=== PATIENT | male | born 1955 | race Caucasian/White ===

== ENCOUNTER 2019-06-07 12:34 | Emergency (ER) | payer MEDICAID, SELFPAY ==
--- NOTE | 2019-06-07 12:35 | ECG_ITS ---
Measurements Intervals [place] Rate: 87 P: 71 [place]: 144 QRS: 42 QRSD: 92 T: 57 QT: 358 QTc: 432 SINUS RHYTHM Compared to ECG 10/06/2015 22:29:26 Sinus arrhythmia no longer present Electronically Signed On 06-08-2019 15:41:26 CDT by Keira Alonso M.D. [id number] f
--- NOTE | 2019-06-07 12:35 | XR_ITS ---
WS: [id number] PORTABLE CHEST HISTORY: cp COMPARISON: 10/06/2015 Mild hyperexpansion of the lungs. Linear atelectasis at the RIGHT lung base. Long-term stability 2.1 cm granuloma LEFT upper lobe. No pneumonia. No pleural effusion or pneumothorax. Cardiac size: Normal. Mediastinum/Aorta: Mild atherosclerosis aorta. No osseous abnormality seen. XR/XR chest 1V portable [id number] IMPRESSION: Chronic emphysema. No acute cardiopulmonary disease.
[2019-06-07 12:50] VITALS: BP 212/119; PULSE 89; RESP 20; TEMP 36.8; O2SAT 98; BMI 21.7
--- NOTE | 2019-06-07 13:11 | ED_ITS ---
HPI - Chest Pain General: Chief Complaint: Chest Pain Stated Complaint: CHEST PAIN/L ARM Time Seen by Provider: 06/07/19 12:56 History of Present Illness: HPI narrative: 53-year-old male who comes in complaining of chest pain for the last about 2 to 2-1/2 weeks he has it intermittently. He associated elevated blood pressure as well. At various times he is taken valerian root for its is a does not seem to help he did take a single sublingual nitro one time recently that seemed to resolve it. He states various things seem to trigger it one time he states he opened the door with his left arm and caused a twinge of chest pain on the left side other times is just occurred at rest he denies any other times or radiation he has had some dyspnea associated with it but no diaphoresis no nausea or vomiting. He usually describes the chest pain as being in twinges the longest it ever lasted is 15 to 20 minutes and is resolved spontaneously. He is not previously had any kind of stress testing. He is not had any fever cough denies abdominal pain urinary tract symptoms he has not had any leg edema. MD complaint: chest pain Onset (ago): week(s) (2-2-1/2) Timing of current episode: episodic Prior episodes: No Onset: during rest Pain location: left chest Pain radiation: none Severity: moderate Quality: tightness and aching Relieving factors: nitroglycerin and rest Exacerbating factors: other (Times exertion will worsen other times it began spontaneously while at rest) Associated symptoms: Reports dyspnea; Deny diaphoresis, fever(s), leg edema, nausea, palpitations, syncope or vomiting Review of Systems Const: Denies: fever or diaphoresis ENMT: Denies: throat pain, ear pain, nasal discharge or nasal congestion Card: Reports: chest pain; Denies: palpitations, irregular heart rhythm, edema, syncope or shortness of breath on exertion Resp: Reports: shortness of breath GI: Denies: nausea or vomiting : Denies: flank pain, painful urination, urinary frequency or urinary urgency Skin/Breast: Denies: rash or itching [facility] ED PFSH: Medical History (Updated 06/07/19 @ 16:25 by Herminio Zamora DO) Finger amputation, traumatic Surgical History (Updated 06/07/19 @ 13:15 by Herminio Zamora DO) H/O lymph node excision Social History Smoking and tobacco status: former smoker Physical Exam Const: COMMON NORMALS: no apparent distress GENERAL APPEARANCE: cooperative and comfortable ORIENTATION/CONSCIOUSNESS: Yes awake, Yes oriented to person, Yes oriented to place and Yes oriented to time HENMT: COMMON NORMALS: normocephalic, head/scalp atraumatic, hearing grossly normal bilaterally, external ears normal, EAC's normal, TM's normal bilaterally, nasal mucous membranes and turbinates normal, moist oral mucous membranes and oropharynx normal HEAD & SCALP: normocephalic and atraumatic NOSE: nasal mucous membranes and turbinates normal EXTERNAL EAR: Yes external ears normal EXTERNAL AUDITORY CANAL: EAC's normal TYMPANIC MEMBRANE: TM's normal bilaterally Eye: COMMON NORMALS: PERRL, EOMs intact bilaterally, conjunctivae normal and no scleral icterus CONJUNCTIVA: Yes conjunctivae normal PUPIL: Yes PERRL Neck/C-Spine: COMMON NORMALS: full ROM, no lymphadenopathy, supple and no JVD Lymph: LYMPHATIC: no lymphadenopathy noted and no lymphedema noted Resp: COMMON NORMALS: normal respiratory effort, no retractions, no use of accessory muscles and clear to auscultation bilaterally AUSCULTATION: clear to auscultation bilaterally Cardio: COMMON NORMALS: no JVD, regular rate, regular rhythm and no murmurs RATE: regular rate RHYTHM: regular rhythm GI: COMMON NORMALS: soft to palpation and no hepatosplenomegaly AUSCULTATION: Yes normoactive bowel sounds PALPATION: Yes soft, No tender, No guarding and Yes no hepatosplenomegaly Extremity: COMMON NORMALS: normal to inspection, normal capillary refill, no clubbing, cyanosis or edema, no calf tenderness and no pedal edema Neuro: SENSORIUM/ORIENTATION: Yes oriented to person, Yes oriented to place and Yes oriented to time Skin: COMMON NORMALS: no rashes or lesions noted GENERAL SKIN EXAM: no rashes or lesions noted Course Vital Signs: Vital signs: Vital Signs Temperature 98.2 F 06/07/19 12:50 Pulse Rate 95 06/07/19 17:21 Respiratory Rate 16 06/07/19 17:21 Blood Pressure 197/119 06/07/19 17:21 Pulse Oximetry 97 06/07/19 17:21 MDM - Chest Pain MDM Narrative: Medical decision making narrative: Discharge home set up for outpatient stress testing patient started on Toprol and given sublingual nitro also advised take aspirin daily if he has any recurrent symptoms return Lab Data: Labs: Lab Results 06/07/19 06/07/19 06/07/19 Range/Units 13:16 13:16 13:16 WBC 6.9 (4.0-10.0) 10^3/ uL RBC 5.35 H (4.1-5.3) 10^6/u L Hgb 16.6 (11.7-16.6) g/dL Hct 51.4 (42.0-52.0) % MCV 96.1 H (80-94) fL MCH 31.0 (28.0-34.0) pg MCHC 32.3 (30.0-36.0) g/dL RDW 13.0 (12.1-15.1) % Plt Count 338 (130-400) 10^3/c mm MPV 9.6 (7.4-10.4) fL Neut % (Auto) 61.3 % Lymph % (Auto) 22.7 % [place] % (Auto) 9.7 % Eos % (Auto) 4.6 % Baso % (Auto) 1.3 % Neut # (Auto) 4.2 (1.8-7.7) 10^3/u L Lymph # (Auto) 1.6 (0.8-4.8) 10^3/u L [place] # (Auto) 0.7 (0.2-0.9) 10^3/u L Eos # (Auto) 0.3 (0.0-0.8) 10^3/u L Baso # (Auto) 0.1 (0.0-0.1) 10^3/u L Nucleated RBC % (a uto) 0 % Nucleated RBCs # 0.0 /100WBC Sodium 141 (136-145) mmol/L Potassium 4.2 (3.5-5.1) mmol/L Chloride 101 (98-107) mmol/L Carbon Dioxide 29 (22-29) mmol/L Anion Gap 15.2 (5-19) BUN 8 (8-23) mg/dL Creatinine 1.1 (0.7-1.2) mg/dL GFR Calculation 67.2 L (90-130) mL/min Glucose 109 (65-115) mg/dL Calculated Osmolal ity 288 (285-295) mOsm/k g Calcium 9.6 (8.5-10.5) mg/dL Total Bilirubin 0.2 (0.15-1.2) mg/dL AST 17 (0-40) U/L ALT 15 (0-41) U/L Alkaline Phosphata se 88 (40-130) IU/L Troponin T Baselin e 20 H (0-15) ng/mL Troponin T 120 Min [place] (0-15) ng/mL Delta Troponin T (0-10) ABS# Total Protein 7.0 (6.6-8.7) g/dL Albumin 4.2 (3.5-5.2) g/dL Globulin 2.8 (1.3-4.6) g/dL 06/07/19 Range/Units 15:15 WBC (4.0-10.0) 10^3/ uL RBC (4.1-5.3) 10^6/u L Hgb (11.7-16.6) g/dL Hct (42.0-52.0) % MCV (80-94) fL MCH (28.0-34.0) pg MCHC (30.0-36.0) g/dL RDW (12.1-15.1) % Plt Count (130-400) 10^3/c mm MPV (7.4-10.4) fL Neut % (Auto) % Lymph % (Auto) % Sterling % (Auto) % Eos % (Auto) % Baso % (Auto) % Neut # (Auto) (1.8-7.7) 10^3/u L Lymph # (Auto) (0.8-4.8) 10^3/u L Sterling # (Auto) (0.2-0.9) 10^3/u L Eos # (Auto) (0.0-0.8) 10^3/u L Baso # (Auto) (0.0-0.1) 10^3/u L Nucleated RBC % (a uto) % Nucleated RBCs # /100WBC Sodium (136-145) mmol/L Potassium (3.5-5.1) mmol/L Chloride (98-107) mmol/L Carbon Dioxide (22-29) mmol/L Anion Gap (5-19) BUN (8-23) mg/dL Creatinine (0.7-1.2) mg/dL GFR Calculation (90-130) mL/min Glucose (65-115) mg/dL Calculated Osmolal ity (285-295) mOsm/k g Calcium (8.5-10.5) mg/dL Total Bilirubin (0.15-1.2) mg/dL AST (0-40) U/L ALT (0-41) U/L Alkaline Phosphata se (40-130) IU/L Troponin T Baselin e (0-15) ng/mL Troponin T 120 Min [place] 19.35 H (0-15) ng/mL Delta Troponin T -0.65 L (0-10) ABS# Total Protein (6.6-8.7) g/dL Albumin (3.5-5.2) g/dL Globulin (1.3-4.6) g/dL Discharge Plan Discharge Patient Disposition: Home, Self-Care Clinical Impression: Chest pain Condition: Stable Prescriptions: New nitroglycerin 0.4 mg tablet, sublingual 0.4 mg SUBLINGUAL Q5M PRN (Reason: chest pain) Qty: 20 RF: 0 Toprol XL 25 mg tablet extended release 24 hr 25 mg PO DAILY Qty: 30 RF: 0 No Action Multiple Vitamins Tablet 1 tab PO DAILY RF: 0 Aspir-81 81 mg Tablet,Delayed Release (Dr/Ec) 81 mg PO DAILY RF: 0 Vitamin D3 1 tab PO DAILY RF: 0 Abuta See Rx Instructions .ROUTE .COMPLEX RF: 0 Vitamin C 1,000 mg Tablet 1,000 mg PO PRN RF: 0 Embauba See Rx Instructions .ROUTE .COMPLEX RF: 0 Graviola See Rx Instructions .ROUTE .COMPLEX RF: 0 Mesoglycan 1 tab PO DAILY RF: 0 Discharge Orders: Discharge Order (Routine); Ordered 06/07/19 Ordered By: Herminio Zamora Referrals: Hill Cleveland, [employer] WORK[employer] [Family Provider] - Discharge Diet: Usual diet Discharge Activity: Limit activity as instructed Activity Restrictions/Additional Instructions: Case management will call to make an appointment for a sestamibi stress test Discharge Date/Time: 06/07/19 16:47 Coding Level of Care Code ED Hydroponics Worker for g Fwd Exam Comprehensive
[2019-06-07 13:24] LABS: Basophils # 0.1 10^3/uL (0.0-0.1); Basophils % 1.3 %; Eosinophils # 0.3 10^3/uL (0.0-0.8); Eosinophils % 4.6 %; Hematocrit 51.4 % (42.0-52.0); Hemoglobin 16.6 g/dL (11.7-16.6); Lymphocytes # 1.6 10^3/uL (0.8-4.8); Lymphocytes % 22.7 %; Mean Corpuscular HGB Conc 32.3 g/dL (30.0-36.0); Mean Corpuscular Volume 96.1 fL (80-94); Mean Platelet Volume 9.6 fL (7.4-10.4); Monocytes # 0.7 10^3/uL (0.2-0.9); Monocytes % 9.7 %; Neutrophils # 4.2 10^3/uL (1.8-7.7); Neutrophils % 61.3 %; Nucleated Red Blood Cells % 0 %; Platelet Count 338 10^3/cmm (130-400); Red Blood Count 5.35 10^6/uL (4.1-5.3); White Blood Count 6.9 10^3/uL (4.0-10.0)
[2019-06-07 13:27] VITALS: BP 196/103; PULSE 85; RESP 16; O2SAT 97
[2019-06-07 13:48] LABS: Alanine Aminotransferase 15 U/L (0-41); Albumin Level 4.2 g/dL (3.5-5.2); Alkaline Phosphatase 88 IU/L (40-130); Anion Gap 15.2 (5-19); Aspartate Amino Transferase 17 U/L (0-40); Blood Urea Nitrogen 8 mg/dL (8-23); Calcium 9.6 mg/dL (8.5-10.5); Carbon Dioxide 29 mmol/L (22-29); Chloride 101 mmol/L (98-107); Globulin 2.8 g/dL (1.3-4.6); Glomerular Filtration Rate 67.2 mL/min (90-130); Glucose 109 mg/dL (65-115); Osmolality Calculated 288 mOsm/kg (285-295); Potassium 4.2 mmol/L (3.5-5.1); Sodium 141 mmol/L (136-145); Total Bilirubin 0.2 mg/dL (0.15-1.2)
[2019-06-07 13:49] LABS: Troponin(5th) Baseline 20 ng/mL (0-15)
[2019-06-07 13:51] VITALS: BP 197/114; PULSE 88; RESP 14; O2SAT 98
[2019-06-07 14:48] VITALS: BP 175/118; PULSE 89; RESP 14; O2SAT 98
[2019-06-07 15:33] LABS: Troponin 5 2HR 19.35 ng/mL (0-15)
[2019-06-07 16:06] LABS: Troponin 5 2HR Delta -0.65 ABS# (0-10)
[2019-06-07 17:21] VITALS: BP 197/119; PULSE 95; RESP 16; O2SAT 97
--- NOTE | 2019-06-07 18:35 | ECG_ITS ---
Measurements Intervals [place] Rate: 89 P: 70 NC: 140 QRS: 45 QRSD: 92 T: 49 QT: 368 QTc: 449 SINUS RHYTHM WITH MARKED SINUS ARRHYTHMIA MINIMAL ST DEPRESSION [0.025+ mV ST DEPRESSION] Compared to ECG 10/06/2015 22:29:26 ST (T wave) deviation now present Electronically Signed On 06-08-2019 16:01:48 CDT by Keira Alonso M.D. [id number]
--- NOTE | 2019-06-12 08:48 | DCPLANNER ---
software quality manager had message to schedule an outpatient stress test for patient. software quality manager faxed order for stress test to centralized scheduling. software quality manager will call for appointment information.
--- NOTE | 2019-06-19 15:01 | DCPLANNER ---
Patient has a followup appointment scheduled for Saturday, July 06, 2019 at 11:00 for a out patient stress test.
--- NOTE | 2019-07-13 14:29 | DCPLANNER ---
Patients stress test that was scheduled for 07.06.19 was cancelled.
== END 2019-06-07 16:47 | disposition home or self-care (01) ==
PROVIDERS: Emergency Medicine; Emergency Provider Family Medicine; Family Provider Nurse Practitioner
DX: R07.9 Chest pain, unspecified (principal); Z79.82 Long term (current) use of aspirin; Z87.891 Personal history of nicotine dependence
CPT/HCPCS: 12345; 36415; 71045; 80053; 84484; 85025; 93005; 99283

== ENCOUNTER 2020-02-08 13:57 | Emergency (ER) | payer MEDICARE, MEDICAID, SELFPAY ==
[2020-02-08] VITALS (7 sets, daily range): BP systolic 121–141; BP diastolic 76–83; PULSE 90–106; RESP 14–20; TEMP 37.8; O2SAT 91–95; BMI 21.7
--- NOTE | 2020-02-08 14:17 | XR_ITS ---
WS: [id number] Exam: XR acute abdomen series [id number] Date/Time of Exam: 02/08/2020 2:24 PM Reason For Exam: vomiting Chest radiograph compared to prior study 06/07/2019. There is infiltrate in the right upper lobe consistent with pneumonia. The left lung is clear. Normal cardiomediastinal structures and bony elements. 2 cm calcified granuloma in the upper left lobe. No sign of bowel obstruction or free air. Visualized organ margins are intact. Bony structures appear no rmal. XR/XR acute abdomen series [id number] IMPRESSION: 1. Right upper lobe pneumonia. 2. No acute abdominal finding.
[2020-02-08] MEDS: sodium chloride 0.9% 500 ML IV (15:06)
[2020-02-08] MEDS: ondansetron 2 mg/ML SDV 2 mL 4 MG IVP (15:06)
[2020-02-08 15:24] LABS: Basophils % 0.2 %; Hematocrit 50.6 % (42.0-52.0); Lymphocytes # 0.9 10^3/uL (0.8-4.8); Lymphocytes % 13.7 %; Mean Corpuscular HGB Conc 33.6 g/dL (30.0-36.0); Mean Corpuscular Hemoglobin 31.2 pg (28.0-34.0); Mean Corpuscular Volume 92.8 fL (80-94); Mean Platelet Volume 10.9 fL (7.4-10.4); Monocytes # 0.8 10^3/uL (0.2-0.9); Monocytes % 12.7 %; Neutrophils # 4.81 10^3/uL (1.8-7.7); Neutrophils % 72.9 %; Nucleated Red Blood Cells % 0 %; Platelet Count 189 10^3/cmm (130-400); Red Blood Count 5.45 10^6/uL (4.1-5.3); Red Cell Distribution Width 13.3 % (12.1-15.1); White Blood Count 6.6 10^3/uL (4.0-10.0)
--- NOTE | 2020-02-08 15:36 | ED_ITS ---
HPI - Nausea/Vomiting/Diarrhea General: Chief complaint: Nausea/Vomiting/Diarrhea Stated complaint: N/V/ WEAKNESS/ SOB W/EXERTION Time Seen by Provider: 02/08/20 13:58 Source: patient, RN notes reviewed and old records reviewed Mode of arrival: ambulatory History of Present Illness: HPI Narrative: 64-year-old male presents to the emergency room chief complaint of having reduced appetite oral intake nausea and vomiting and fever has been ongoing since patient reports no history of any stomach ulcers or GI issues she reports reduced appetite and oral intake reports no other associated symptoms reports no bloody emesis or stools. MD elicited complaint: nausea, vomiting and abdominal pain (Epigastric) Associated nausea: No Location of pain: Epigastric Pain consistency: intermittent Severity: moderate Quality: cramping Associated symtoms: Denies anxiety, change in vision, chest pain, fatigue, headache(s), malaise, nausea or palpitations Review of Systems General: Reports: 10 or more systems reviewed and unremarkable except in HPI and below Const: Denies: fever(s), chills, fatigue or malaise Eyes: Denies: change in vision or blurry vision Card: Denies: chest pain or palpitations Resp: Denies: dyspnea or productive cough GI: Denies: abdominal pain, nausea or vomiting : Denies: flank pain Musc: Denies: extremity pain or extremity swelling Skin/Breast: Denies: rash or pruritus Neuro: Denies: headache(s) Psych: Denies: anxiety or depression Marciano/Lymph: Denies: easy bleeding All/Imm: Denies: urticaria, throat swelling or facial swelling PFS ED PFSH: Medical History (Updated 02/08/20 @ 18:13 by Babar Ugalde) Finger amputation, traumatic Surgical History (Updated 06/07/19 @ 13:15 by Herminio Zamora DO) H/O lymph node excision Social History Smoking and tobacco status: former smoker Physical Exam Const: COMMON NORMALS: patient oriented x3 and healthy appearing HENMT: COMMON NORMALS: normocephalic and atraumatic HEAD & SCALP: normocephalic and atraumatic Eye: COMMON NORMALS: Equal, round and reactive pupils present and EOMs intact bilaterally PUPIL: Yes Equal, round and reactive pupils present Neck/C-Spine: COMMON NORMALS: full ROM, supple and no JVD Lymph: LYMPHATIC: no lymphadenopathy noted Chest: COMMONS NORMALS: normal inspection of the chest and normal palpation of entire chest wall Resp: COMMON NORMALS: No retractions; negative for normal respiratory effort (Diminished breath sounds appreciated bilaterally with mild scattered expira) EFFORT & INSPECTION: Yes able to speak in complete sentences and Yes symmetric chest movement AUSCULTATION: wheezes Cardio: COMMON NORMALS: no JVD; negative for regular rate (Tachycardic low 100s noted) GI: COMMON NORMALS: Normal to inspection, nondistended, normoactive bowel sounds present, Soft to palpation and non-tender INSPECTION: Yes normal to inspection PALPATION: Yes Soft to palpation : COMMON NORMALS: Yes no CVA tenderness BLADDER/KIDNEY EXAM: Yes no CVA tenderness Back/Pelvis: COMMON NORMALS: no CVA tenderness Extremity: COMMON NORMALS: normal to inspection and full ROM Neuro: COMMON NORMALS: patient oriented x3, CN's II-XII intact bilaterally, moves all extremities and no focal motor deficits Psych: COMMON NORMALS: mental status grossly normal, Normal thought process present, cooperative and normal affect THOUGHT PROCESS: Normal thought process present Skin: COMMON NORMALS: no rashes or lesions noted GENERAL SKIN EXAM: no rashes or lesions noted Course Vital Signs: Vital signs: Vital Signs Temperature 100.1 F H 02/08/20 14:04 Pulse Rate 99 02/08/20 16:58 Respiratory Rate 16 02/08/20 16:58 Blood Pressure 137/77 02/08/20 16:58 Pulse Oximetry 94 02/08/20 16:58 MDM - Nausea/Vomiting/Diarrhea MDM Narrative: Medical decision making narrative: Due to the patient's significant edition lab work and imaging was obtained the patient patient was found to have a right-sided pneumonia will be obtaining a rapid Covid swab results as well as provide him with steroids and neb treatments oxygen saturations remained in the low 90s. He does not appear to be septic at this time we will continue to follow. Lab work and imaging revealed mild light letter enema abnormalities he did have a right-sided pneumonia appreciated he was provided some antibiotics while in the ER department and subsequently discharged home on medications for his symptoms. Patient vies follow-up primary care in 3 to 5 days for further assessment management and return in the interim if any of his symptoms persist or worsen. Prior to subsequent discharge patient was able to tolerate p.o. intake of water which he had no difficulty holding down. Lab Data: Labs: Lab Results 02/08/20 02/08/20 02/08/20 Range/Units 15:05 15:05 16:55 WBC 6.6 (4.0-10.0) 10^3/ uL RBC 5.45 H (4.1-5.3) 10^6/u L Hgb 17.0 H (11.7-16.6) g/dL Hct 50.6 (42.0-52.0) % MCV 92.8 (80-94) fL MCH 31.2 (28.0-34.0) pg MCHC 33.6 (30.0-36.0) g/dL RDW 13.3 (12.1-15.1) % Plt Count 189 (130-400) 10^3/c mm MPV 10.9 H (7.4-10.4) fL Neut % (Auto) 72.9 % Lymph % (Auto) 13.7 % [place] % (Auto) 12.7 % Eos % (Auto) 0.0 % Baso % (Auto) 0.2 % Neut # (Auto) 4.81 (1.8-7.7) 10^3/u L Lymph # (Auto) 0.9 (0.8-4.8) 10^3/u L [place] # (Auto) 0.8 (0.2-0.9) 10^3/u L Eos # (Auto) 0.0 (0.0-0.8) 10^3/u L Baso # (Auto) 0.0 (0.0-0.1) 10^3/u L Nucleated RBC % (a uto) 0 % Nucleated RBCs # 0.0 /100WBC Sodium 132 L (136-145) mmol/L Potassium 4.1 (3.5-5.1) mmol/L Chloride 93 L (98-107) mmol/L Carbon Dioxide 30 H (22-29) mmol/L Anion Gap 13.1 (5-19) BUN 15 (8-23) mg/dL Creatinine 1.0 (0.7-1.2) mg/dL GFR Calculation 74.8 L (90-130) mL/min Glucose 115 (65-115) mg/dL Calculated Osmolal ity 276 L (285-295) mOsm/k g Calcium 8.8 (8.5-10.5) mg/dL Total Bilirubin 0.4 (0.15-1.2) mg/dL AST 29 (0-40) U/L ALT 12 (0-41) U/L Alkaline Phosphata se 55 (40-130) IU/L Total Protein 6.7 (6.6-8.7) g/dL Albumin 3.3 L (3.5-5.2) g/dL Globulin 3.4 (1.3-4.6) g/dL Lipase 63 H (13-60) U/L SARS-CoV-2 Ag (Rap id) Negative (Negative) Discharge Plan Discharge Patient Disposition: Home Clinical Impression: Nausea vomiting and diarrhea, Pneumonia, Gastroenteritis, Dehydration Condition: Stable Prescriptions: New azithromycin 500 mg tablet 500 mg PO DAILY 7 Days Qty: 7 RF: 0 Zofran 4 mg tablet 4 mg PO Q4H PRN (Reason: nausea and vomiting) 4 Days Qty: 20 RF: 0 Ventolin HFA 90 mcg/actuation HFA aerosol inhaler 1 inh inhalation Q6H PRN (Reason: shortness of breath or wheezing) Qty: 6.7 RF: 0 Protonix 40 mg tablet,delayed release (DR/EC) 40 mg PO BID 10 Days Qty: 20 RF: 0 No Action Multiple Vitamins Tablet 1 tab PO DAILY RF: 0 Aspir-81 81 mg Tablet,Delayed Release (Dr/Ec) 81 mg PO DAILY RF: 0 Vitamin D3 1 tab PO DAILY RF: 0 Abuta See Rx Instructions .ROUTE .COMPLEX RF: 0 Vitamin C 1,000 mg Tablet 1,000 mg PO PRN RF: 0 Embauba See Rx Instructions .ROUTE .COMPLEX RF: 0 Graviola See Rx Instructions .ROUTE .COMPLEX RF: 0 Mesoglycan 1 tab PO DAILY RF: 0 nitroglycerin 0.4 mg tablet, sublingual 0.4 mg SUBLINGUAL Q5M PRN (Reason: chest pain) Qty: 20 RF: 0 Toprol XL 25 mg tablet extended release 24 hr 25 mg PO DAILY Qty: 30 RF: 0 Discharge Orders: Discharge ED (Routine); Ordered 02/08/20 Ordered By: Babar Ugalde Referrals: Hill Cleveland, [employer] LIBRARIAN-C [Primary Care Provider] - 4-7 days Discharge Diet: Advance as tolerated Patient Instructions: Acute Nausea and Vomiting (ED), Pneumonia (ED) Activity Restrictions/Additional Instructions: Please follow-up with your primary care doctor 4 to 7 days take medications as prescribed and return to the ER if any of your symptoms persist or worse. Adhere to a clear liquid diet and advance as tolerated due to your nausea and vomiting. Coding Level of Care Code ED Assigner for Tommie Fwd Exam Comprehensive
[2020-02-08 16:16] LABS: Alanine Aminotransferase 12 U/L (0-41); Albumin Level 3.3 g/dL (3.5-5.2); Alkaline Phosphatase 55 IU/L (40-130); Anion Gap 13.1 (5-19); Aspartate Amino Transferase 29 U/L (0-40); Blood Urea Nitrogen 15 mg/dL (8-23); Calcium 8.8 mg/dL (8.5-10.5); Carbon Dioxide 30 mmol/L (22-29); Chloride 93 mmol/L (98-107); Globulin 3.4 g/dL (1.3-4.6); Glomerular Filtration Rate 74.8 mL/min (90-130); Glucose 115 mg/dL (65-115); Lipase 63 U/L (13-60); Osmolality Calculated 276 mOsm/kg (285-295); Potassium 4.1 mmol/L (3.5-5.1); Sodium 132 mmol/L (136-145); Total Bilirubin 0.4 mg/dL (0.15-1.2); Total Protein 6.7 g/dL (6.6-8.7)
[2020-02-08] MEDS: ipratropium-albuterol 3 mL Neb INHALATION (16:20)
[2020-02-08] MEDS: cefTRIAXone 1,000 MG in sodium chloride 0.9% (plus) 50 ML 100 MG IV (16:50)
[2020-02-08] MEDS: ibuprofen 600 mg Tablet PO (17:10)
[2020-02-08 17:54] LABS: SARS Covid-2 Antigen Negative (Negative)
== END 2020-02-08 18:35 | disposition home or self-care (01) ==
PROVIDERS: Emergency Provider Emergency Medicine; PCP Nurse Practitioner
DX: K52.9 Noninfective gastroenteritis and colitis, unspecified (principal); E86.0 Dehydration; J18.9 Pneumonia, unspecified organism; Z79.82 Long term (current) use of aspirin; Z87.891 Personal history of nicotine dependence
CPT/HCPCS: 12345; 74022; 80053; 83690; 85025; 87426; 94640; 96365; 96375; 99282; 99284; J0696; J2405; J2930; J7040

== ENCOUNTER 2020-02-13 18:50 | Inpatient (IN) | payer MEDICARE, MEDICAID, SELFPAY ==
[2020-02-13] VITALS (14 sets, daily range): BP systolic 114–130; BP diastolic 68–89; PULSE 87–100; RESP 16–20; TEMP 37.7; O2SAT 90–95; BMI 19.6
--- NOTE | 2020-02-13 19:00 | ECG_ITS ---
[facility] Test Date: 2020-02-13 Pat Name: Rudi Sanchez Department: Room: Gender: Male [employer]: : 1955 Requested By: Margret Martinez Order Number: [id number] Marcel MD: Shiva Rodriguez M.D. Measurements Intervals [place] Rate: 100 P: 68 AK: 119 QRS: 61 QRSD: 86 T: 66 QT: 344 QTc: 445 Interpretive Statements SINUS TACHYCARDIA WITH SHORT [place] INTERVAL ABNORMAL RHYTHM ECG Compared to ECG 06/07/2019 15:54:19 Short AK interval now present Sinus rhythm no longer present Sinus arrhythmia no longer present ST (T wave) deviation no longer present Electronically Signed On 02-13-2020 20:14:48 PRICE LISTER by Shiva Rodriguez M.D. [id number]
--- NOTE | 2020-02-13 19:02 | W.ED.SOB ---
HPI - SOB/Dyspnea General: Chief Complaint: Shortness of Breath/Dyspnea Stated Complaint: resp dis poss covid Time Seen by Provider: 02/13/20 18:50 Source: patient and EMS Mode of arrival: EMS Limitations: no limitations History of Present Illness: HPI Narrative: 64-year-old male states he was diagnosed with pneumonia 2 days ago. He states he did have a Covid that was negative. States he has had contacts with people with Covid though. He states that today got much more short of breath and had increased wheezing. EMS states he is 72% on room air and had to place him on 5 L of oxygen. He has had no chest pain. He has had fevers. Denies any vomiting or diarrhea. Associated symptoms: Reports fever(s); Deny abdominal pain, chest pain, nausea or vomiting Review of Systems Const: Reports: fever(s) Eyes: Denies: blurry vision or eye discomfort ENMT: Denies: throat pain or dental pain Card: Denies: chest pain Resp: Reports: dyspnea, non-productive cough and wheezing GI: Denies: abdominal pain, nausea, vomiting or diarrhea : Denies: dysuria Musc: Denies: neck pain or back pain Skin/Breast: Denies: rash Neuro: Denies: headache(s) Psych: Denies: depression Marciano/Lymph: Denies: easy bruising All/Imm: Denies: urticaria PFSH ED PFSH: Medical History (Updated 02/13/20 @ 22:50 by Margret Martinez MD) Finger amputation, traumatic Surgical History (Updated 06/07/19 @ 13:15 by Herminio Zamora DO) H/O lymph node excision Social History Smoking and tobacco status: former smoker Physical Exam Const: COMMON NORMALS: patient oriented x3 and healthy appearing GENERAL APPEARANCE: in distress HENMT: COMMON NORMALS: normocephalic and atraumatic HEAD & SCALP: normocephalic and atraumatic Eye: COMMON NORMALS: Equal, round and reactive pupils present and EOMs intact bilaterally PUPIL: Yes Equal, round and reactive pupils present Neck/C-Spine: COMMON NORMALS: full ROM and supple Chest: COMMONS NORMALS: normal inspection of the chest and normal palpation of entire chest wall Resp: COMMON NORMALS: No retractions EFFORT & INSPECTION: Yes tachypneic and Yes respiratory distress AUSCULTATION: wheezes Cardio: COMMON NORMALS: regular rate, regular rhythm and No murmurs present (Cardio) RATE: regular rate RHYTHM: regular rhythm GI: COMMON NORMALS: Normal to inspection, nondistended, normoactive bowel sounds present, Soft to palpation, non-tender and no masses PALPATION: Yes Soft to palpation Extremity: COMMON NORMALS: normal to inspection and full ROM Neuro: COMMON NORMALS: patient oriented x3, moves all extremities and no focal motor deficits Psych: COMMON NORMALS: mental status grossly normal, Normal thought process present and cooperative THOUGHT PROCESS: Normal thought process present Skin: COMMON NORMALS: no rashes or lesions noted and no wounds GENERAL SKIN EXAM: no rashes or lesions noted Course Vital Signs: Vital signs: Vital Signs Temperature 99.8 F H 02/13/20 18:59 Pulse Rate 98 02/13/20 22:38 Respiratory Rate 16 02/13/20 23:15 Blood Pressure 118/74 02/13/20 23:15 Pulse Oximetry 95 02/13/20 23:15 MDM - SOB/Dyspnea MDM Narrative: Medical decision making narrative: Rudi presents here with bilateral pneumonia causing hypoxia. Patient is doing well on BiPAP patient's rapid Covid here is negative but will do a send out. Patient given IV antibiotics. I spoke to the hospitalist and will admit to the ICU. Patient CT showed no signs of pulmonary embolism. Lab Data: Labs: Lab Results 02/13/20 02/13/20 02/13/20 Range/Units 19:00 19:54 19:54 WBC 8.5 (4.0-10.0) 10^3/ uL RBC 4.11 (4.1-5.3) 10^6/u L Hgb 12.8 (11.7-16.6) g/dL Hct 38.4 L (42.0-52.0) % MCV 93.4 (80-94) fL MCH 31.1 (28.0-34.0) pg MCHC 33.3 (30.0-36.0) g/dL RDW 13.2 (12.1-15.1) % Plt Count 150 (130-400) 10^3/c mm MPV 11.1 H (7.4-10.4) fL Neut % (Auto) 83.4 % Lymph % (Auto) 9.3 % Williamson % (Auto) 6.2 % Eos % (Auto) 0.1 % Baso % (Auto) 0.2 % Neut # (Auto) 7.09 (1.8-7.7) 10^3/u L Lymph # (Auto) 0.8 (0.8-4.8) 10^3/u L Williamson # (Auto) 0.5 (0.2-0.9) 10^3/u L Eos # (Auto) 0.0 (0.0-0.8) 10^3/u L Baso # (Auto) 0.0 (0.0-0.1) 10^3/u L Nucleated RBC % (a uto) 0 % Nucleated RBCs # 0.0 /100WBC PT 14.70 (12.1-14.9) SECO NDS INR 1.11 (0.8-1.2) Specimen Type Arterial Sample Site Brachial, left ABG pH 7.52 H (7.35-7.45) ABG pCO2 34.8 L (35-45) mmHg ABG pO2 52.7 L (80.0-100.0) mmH g ABG HCO3 28.3 H (22-26) mmol/L ABG Base Excess 5.5 H (-2.0-2.0) mmol/ L Arun Test N/a Hematocrit 48.2 (42-52) % Hgb O2 Saturation 88.2 L (95-100) % Carboxyhemoglobin 1.0 (0.4-20.1) %THgb Methemoglobin 1.0 (0.4-1.5) % Total Hemoglobin 15.7 (14-18) g/dL O2 Delivery Device Bipap FiO2 70.0 % Mathematical Sciences Professor ID Harkr Sodium (136-145) mmol/L Potassium (3.5-5.1) mmol/L Chloride (98-107) mmol/L Carbon Dioxide (22-29) mmol/L Anion Gap (5-19) BUN (8-23) mg/dL Creatinine (0.7-1.2) mg/dL GFR Calculation (90-130) mL/min Glucose (65-115) mg/dL Calculated Osmolal ity (285-295) mOsm/k g Lactic Acid (0.5-2.2) mmol/L Calcium (8.5-10.5) mg/dL Total Bilirubin (0.15-1.2) mg/dL AST (0-40) U/L ALT (0-41) U/L Alkaline Phosphata se (40-130) IU/L NT-Pro-B Natriuret Pep (0-125) pg/mL Total Protein (6.6-8.7) g/dL Albumin (3.5-5.2) g/dL Globulin (1.3-4.6) g/dL SARS-CoV-2 Ag (Rap id) (Negative) 02/13/20 02/13/20 02/13/20 Range/Units 19:54 20:13 21:31 WBC (4.0-10.0) 10^3/ uL RBC (4.1-5.3) 10^6/u L Hgb (11.7-16.6) g/dL Hct (42.0-52.0) % MCV (80-94) fL MCH (28.0-34.0) pg MCHC (30.0-36.0) g/dL RDW (12.1-15.1) % Plt Count (130-400) 10^3/c mm MPV (7.4-10.4) fL Neut % (Auto) % Lymph % (Auto) % Williamson % (Auto) % Eos % (Auto) % Baso % (Auto) % Neut # (Auto) (1.8-7.7) 10^3/u L Lymph # (Auto) (0.8-4.8) 10^3/u L Williamson # (Auto) (0.2-0.9) 10^3/u L Eos # (Auto) (0.0-0.8) 10^3/u L Baso # (Auto) (0.0-0.1) 10^3/u L Nucleated RBC % (a uto) % Nucleated RBCs # /100WBC PT (12.1-14.9) SECO NDS INR (0.8-1.2) Specimen Type Sample Site ABG pH (7.35-7.45) ABG pCO2 (35-45) mmHg ABG pO2 (80.0-100.0) mmH g ABG HCO3 (22-26) mmol/L ABG Base Excess (-2.0-2.0) mmol/ L Arun Test Hematocrit (42-52) % Hgb O2 Saturation (95-100) % Carboxyhemoglobin (0.4-20.1) %THgb Methemoglobin (0.4-1.5) % Total Hemoglobin (14-18) g/dL O2 Delivery Device FiO2 % Mathematical Sciences Professor ID Sodium 134 L (136-145) mmol/L Potassium 4.0 (3.5-5.1) mmol/L Chloride 96 L (98-107) mmol/L Carbon Dioxide 28 (22-29) mmol/L Anion Gap 14.0 (5-19) BUN 15 (8-23) mg/dL Creatinine 1.1 (0.7-1.2) mg/dL GFR Calculation 67.0 L (90-130) mL/min Glucose 124 H (65-115) mg/dL Calculated Osmolal ity 280 L (285-295) mOsm/k g Lactic Acid 1.8 (0.5-2.2) mmol/L Calcium 8.2 L (8.5-10.5) mg/dL Total Bilirubin 0.7 (0.15-1.2) mg/dL AST 36 (0-40) U/L ALT 19 (0-41) U/L Alkaline Phosphata se 47 (40-130) IU/L NT-Pro-B Natriuret Pep 405 H (0-125) pg/mL Total Protein 6.0 L (6.6-8.7) g/dL Albumin 2.5 L (3.5-5.2) g/dL Globulin 3.5 (1.3-4.6) g/dL SARS-CoV-2 Ag (Rap id) Negative (Negative) Imaging Data^: CT Chest: Radiologist's impression: [address] [address] [address] Scan Report Signed Patient: Rudi Sanchez Unit #: [id number] : 1955 Age/Sex: 64 / M ADM Date: 02/13/20 Loc: ER Room/Bed: Attending Dr: Ordering Provider/Ordering MD: Margret Martinez MD Date of Service: 02/13/20 Procedure(s): CT angio chest PE protcl [id number] Accession Number(s): [id number] Report Number: [id number] PROCEDURE INFORMATION: Exam: CT Angiography Chest With Contrast Exam date and time: 02/13/2020 10:03 PM Age: 64 years old Clinical indication: Dyspnea and shortness of breath; Patient HX: SOB, dyspnea, and hypoxia. Two negative rapid covid tests. TECHNIQUE: Imaging protocol: Computed tomographic angiography of the chest with intravenous contrast. 3D rendering (Not supervised by radiologist): MIP and/or 3D reconstructed images were created by the technologist. Radiation optimization: All CT scans at this facility use at least one of these dose optimization techniques: automated exposure control; mA and/or kV adjustment per patient size (includes targeted exams where dose is matched to clinical indication); or iterative reconstruction. Contrast material: OMNI 350; Contrast volume: 74 ml; Contrast route: INTRAVENOUS (IV); COMPARISON: CR XR chest 1V portable [id number] 02/13/2020 7:25 PM RADIATION DOSE METRICS: Total DLP (mGy-cm): 596.91 FINDINGS: Pulmonary arteries: Normal. No pulmonary emboli. Aorta: Unremarkable. No aortic aneurysm. No aortic dissection. Lungs: Patchy bilateral airspace opacities concerning for an infectious process. Left upper lobe benign calcified granuloma. Pleural space: Trace bilateral pleural effusions. Heart: Coronary artery atherosclerotic calcifications. Lymph nodes: Several mildly enlarged mediastinal lymph nodes measuring 10 mm, nonspecific. Bones/joints: Unremarkable. No acute fracture. Soft tissues: Unremarkable. CT/CT angio chest PE protcl [id number] IMPRESSION: 1. Negative for pulmonary embolus. 2. Several mildly enlarged mediastinal lymph nodes measuring 10 mm, nonspecific. 3. Patchy bilateral airspace opacities concerning for an infectious process. 4. Left upper lobe benign calcified granuloma. 5. Trace bilateral pleural effusions. 6. Coronary artery atherosclerotic calcifications. EKG Data^: EKG 1: Attestation: I personally reviewed and interpreted this EKG as follows: EKG Interpretation Date: 02/13/20 EKG interpretation time: 19:37 Interpretation: sinus tach hr [address] or t wave abnormalities qrs 86 qtc 445 Critical Care Time Critical Care Time: Critical Care Time: Yes Total Critical Care Time: 36 Attestation: This case had a high probability of a clinically significant, sudden, or life threatening deterioration of this patient's condition which required my full and direct attention, intervention and personal management. Discharge Plan Discharge Patient Disposition: Admitted As Inpatient Admit Provider: Cruz Diego Clinical Impression: Hypoxia Pneumonia Qualifiers: Pneumonia type: due to unspecified organism Laterality: bilateral Lung location: unspecified part of lung Qualified Code(s): J18.9 - Pneumonia, unspecified organism Condition: Stable Coding Level of Care Code ED Weigher And Mixer for g Fwd Exam Comprehensive
--- NOTE | 2020-02-13 19:24 | XR_ITS ---
WS: [id number] Portable AP upright chest, 02/13/2020 Clinical Data: sob Comparison: Portable chest, 06/07/2019. Findings: Patchy opacities are present bilaterally. There is opacity in the right upper lobe, right l ower lobe and lingula of the left upper lobe. The left upper lobe granuloma remains unchanged. The he art is slightly enlarged. The aortic arch and descending aorta show calcification and tortuosity. The re is a dextro scoliosis. XR/XR chest 1V portable [id number] Impression: 1. Patchy opacities consistent with acute pneumonia. 2. Cardiomegaly and atherosclerosis.
[2020-02-13 19:44] LABS: ABG PCO2 34.8 mmHg (35-45); ABG PH Result 7.52 (7.35-7.45); Arterial Blood Gas Hematocrit 48.2 % (42-52); Base Excess ABG 5.5 mmol/L (-2.0-2.0); Blood Gas Operator Identificat HARKR; Blood Gas Sample Site Brachial, left; Blood Gas Sample Type Arterial; HCO3 ABG 28.3 mmol/L (22-26); HGB O2 Sat 88.2 % (95-100); Oxygen Device BIPAP; PO2 ABG 52.7 mmHg (80.0-100.0); Total Hemoglobin 15.7 g/dL (14-18)
[2020-02-13] MEDS: albuterol 8 gm MDI 2 PUFF INHALATION (19:50)
[2020-02-13 20:07] LABS: Basophils % 0.2 %; Eosinophils % 0.1 %; Hematocrit 38.4 % (42.0-52.0); Hemoglobin 12.8 g/dL (11.7-16.6); Lymphocytes # 0.8 10^3/uL (0.8-4.8); Lymphocytes % 9.3 %; Mean Corpuscular HGB Conc 33.3 g/dL (30.0-36.0); Mean Corpuscular Hemoglobin 31.1 pg (28.0-34.0); Mean Corpuscular Volume 93.4 fL (80-94); Mean Platelet Volume 11.1 fL (7.4-10.4); Monocytes # 0.5 10^3/uL (0.2-0.9); Monocytes % 6.2 %; Neutrophils # 7.09 10^3/uL (1.8-7.7); Neutrophils % 83.4 %; Nucleated Red Blood Cells % 0 %; Platelet Count 150 10^3/cmm (130-400); Red Blood Count 4.11 10^6/uL (4.1-5.3); Red Cell Distribution Width 13.2 % (12.1-15.1); White Blood Count 8.5 10^3/uL (4.0-10.0)
[2020-02-13] MEDS: piperacillin-tazobactam 3.375 GM in sodium chloride 0.9% (plus) 50 ML IV (20:15)
[2020-02-13 20:53] LABS: Alanine Aminotransferase 19 U/L (0-41); Albumin Level 2.5 g/dL (3.5-5.2); Alkaline Phosphatase 47 IU/L (40-130); Aspartate Amino Transferase 36 U/L (0-40); Blood Urea Nitrogen 15 mg/dL (8-23); Calcium 8.2 mg/dL (8.5-10.5); Carbon Dioxide 28 mmol/L (22-29); Chloride 96 mmol/L (98-107); Globulin 3.5 g/dL (1.3-4.6); Glucose 124 mg/dL (65-115); NT Pro B Type Natriuretic Pept 405 pg/mL (0-125); Osmolality Calculated 280 mOsm/kg (285-295); Sodium 134 mmol/L (136-145); Total Bilirubin 0.7 mg/dL (0.15-1.2)
[2020-02-13 21:31] LABS: SARS Covid-2 Antigen Negative (Negative)
--- NOTE | 2020-02-13 21:39 | CTR_ITS ---
PROCEDURE INFORMATION: Exam: CT Angiography Chest With Contrast Exam date and time: 02/13/2020 10:03 PM Age: 64 years old Clinical indication: Dyspnea and shortness of breath; Patient HX: SOB, dyspnea, and hypoxia. Two negative rapid covid tests. TECHNIQUE: Imaging protocol: Computed tomographic angiography of the chest with intravenous contrast. 3D rendering (Not supervised by radiologist): MIP and/or 3D reconstructed images were created by the technologist. Radiation optimization: All CT scans at this facility use at least one of these dose optimization techniques: automated exposure control; mA and/or kV adjustment per patient size (includes targeted exams where dose is matched to clinical indication); or iterative reconstruction. Contrast material: OMNI 350; Contrast volume: 74 ml; Contrast route: INTRAVENOUS (IV); COMPARISON: CR XR chest 1V portable [id number] 02/13/2020 7:25 PM RADIATION DOSE METRICS: Total DLP (mGy-cm): 596.91 FINDINGS: Pulmonary arteries: Normal. No pulmonary emboli. Aorta: Unremarkable. No aortic aneurysm. No aortic dissection. Lungs: Patchy bilateral airspace opacities concerning for an infectious process. Left upper lobe benign calcified granuloma. Pleural space: Trace bilateral pleural effusions. Heart: Coronary artery atherosclerotic calcifications. Lymph nodes: Several mildly enlarged mediastinal lymph nodes measuring 10 mm, nonspecific. Bones/joints: Unremarkable. No acute fracture. Soft tissues: Unremarkable. CT/CT angio chest PE protcl [id number] IMPRESSION: 1. Negative for pulmonary embolus. 2. Several mildly enlarged mediastinal lymph nodes measuring 10 mm, nonspecific. 3. Patchy bilateral airspace opacities concerning for an infectious process. 4. Left upper lobe benign calcified granuloma. 5. Trace bilateral pleural effusions. 6. Coronary artery atherosclerotic calcifications. Radiation Dose CTDIVOL = (mGy): DLP = 596.91 (mGy-cm)
[2020-02-13 21:49] LABS: INR 1.11 (0.8-1.2)
[2020-02-13] MEDS: iohexol 350 mg/mL 100 mL Btl IV (22:04)
[2020-02-13 22:08] LABS: Lactic Sepsis W/Reflex 1.8 mmol/L (0.5-2.2)
[2020-02-13] MEDS: vancomycin 1,000 MG in sodium chloride 0.9% 250 ML 250 MG IV (22:41)
--- NOTE | 2020-02-13 23:18 | PC.NURSE ---
Dr Martinez notified that fluids, acetaminophen, and decadron not given by prior nurse.
--- NOTE | 2020-02-13 23:22 | PC.NURSE ---
Pt to go to ICU-9. Nurse not available at this time and room not clean.
[2020-02-14] VITALS (127 sets, daily range): BP systolic 94–144; BP diastolic 62–104; PULSE 69–108; RESP 12–29; TEMP 37.1; O2SAT 85–97
--- NOTE | 2020-02-14 00:19 | P.HP_ITS ---
Providers/Chief Complaint Admitting Physician: Cruz Diego Primary Care Provider: Hill Cleveland, [facility] Chief Complaint: resp dis poss covid History of Present Illness Very pleasant 64-year-old gentleman with history of COPD, not on oxygen, at home has uses a nebulizer, came to ER due to progressively worsening shortness of breath. He states that around January 26 he was having some GI symptoms with nausea vomiting, diarrhea, chills, and also started having some dry cough, he says that since then vomiting and diarrhea resolved, although did have some nausea today, however, shortness of breath, cough have persisted and gotten worse. He was seen here in ER on the and given a prescription for azithromycin for a pneumonia, ventolin in addition to Protonix and Zofran for gastroenteritis. He was tested with rapid COVID 19 test which was negative. This test was repeated during current visit and is negative as well. He was reported saturating in the 70s on room air when he was first assessed. He is currently on BiPAP support and he reports is feeling somewhat better. He denies any chest pain or pressure. He confirms persistent dry cough. Has been having chills. In ER temperature is noted 99.8. Heart rate 88-98. ABG 7.52/34.8/2.7/28.3. Sodium 134. Creatinine 1.1. Glucose 124. BNP 405. EKG with sinus tachycardia. Assessment by CT angiogram of the chest was negative for PE. Noted several mildly enlarged mediastinal lymph nodes measuring 10 mm, nonspecific. Patchy bilateral airspace opacities noted concerning for infectious process. Left upper lobe benign calcified granuloma. Trace bilateral pleural effusions. Coronary atherosclerotic calcifications. In ER he received albuterol inhaler, Decadron, also Zosyn and vancomycin, and 1 L fluid bolus. In case of being unable to make his own decisions names friend Bonnie Aranda ) as surrogate decision-maker. Review of Systems Const: Reports: fever(s) and chills; Denies: body aches or malaise Eyes: Denies: change in vision or eye redness ENMT: Denies: throat pain, oral sores or ear or mastoid pain Card: Denies: chest pain, edema, pre-syncope or dyspnea on exertion Resp: Reports: dyspnea and non-productive cough; Denies: change in phlegm color or hemoptysis GI: Reports: nausea; Denies: abdominal pain, vomiting, diarrhea, constipation, hematochezia or melena : Denies: flank pain, difficulty urinating, urinary frequency or hematuria Musc: Denies: back pain, joint swelling or joint redness Skin/Breast: Denies: rash, sores or new lesions Neuro: Denies: headache(s), numbness in extremities, weakness in extremities, dizziness, confusion or seizure-like activity Endo: Denies: polyuria or polydipsia Marciano/Lymph: Denies: easy bleeding or purpura All/Imm: Denies: urticaria, throat swelling or tongue swelling Medications/Allergies Home Medications Medication Instructions Recorded Confirmed Last Taken Type Abuta See Rx Instructions .ROUTE .COMPLEX 06/07/19 02/13/20 Unknown History Embauba See Rx Instructions .ROUTE .COMPLEX 06/07/19 02/13/20 Unknown History Graviola See Rx Instructions .ROUTE .COMPLEX 06/07/19 02/13/20 Unknown History Mesoglycan 1 tab PO DAILY 06/07/19 02/13/20 06/06/19 History Vitamin D3 1 tab PO DAILY 06/07/19 02/13/20 06/06/19 History ascorbic acid (vitamin C) [Vitamin 1,000 mg PO PRN 06/07/19 02/13/20 Unknown History C] aspirin [Aspir-81] 81 mg PO DAILY 06/07/19 02/13/20 06/06/19 History multivitamin [Multiple Vitamins] 1 tab PO DAILY 06/07/19 02/13/20 06/06/19 History nitroglycerin 0.4 mg SUBLINGUAL Q5M PRN #20 tab 06/07/19 02/13/20 Unknown Rx albuterol sulfate [Ventolin HFA] 1 inh INHALATION Q6H PRN #6.7 g 02/08/20 02/13/20 Unknown Rx azithromycin 500 mg PO DAILY 7 Days #7 tab 02/08/20 02/13/20 02/13/20 Rx pantoprazole [Protonix] 40 mg PO BID 10 Days #20 tab 02/08/20 02/13/20 02/12/20 Rx budesonide 0.5 mg INHALATION BID 02/13/20 02/13/20 02/13/20 History lisinopril 10 mg PO DAILY 02/13/20 02/13/20 02/12/20 History metoprolol tartrate 50 mg PO Q12H 02/13/20 02/13/20 02/12/20 History ondansetron HCl [Zofran] 4 mg PO Q4H PRN 02/13/20 02/13/20 Unknown History Allergies Allergy/AdvReac Type Severity Reaction Status Date / Time No Known Allergies Allergy Verified 06/07/19 12:54 PFSH Acute PFSH: Medical History Finger amputation, traumatic Surgical History H/O lymph node excision Family History Other No significant family history Social History (Updated 02/14/20 @ 00:47 by Cruz Diego MD) Smoking and tobacco status: former smoker Alcohol intake: current Alcohol intake frequency: holidays/special occasions only Substance/Drug Use: never Lives independently: Yes Marital status: Single Current occupational status: retired Vitals/I&O/Wt Last Vital Signs Temp 99.8 F H 02/13/20 18:59 Pulse 98 02/13/20 22:38 Resp 16 02/13/20 23:15 BP 118/74 02/13/20 23:15 Pulse Ox 95 02/13/20 23:15 Weight last 48 hrs Weight 65.771 kg Physical Exam Const: COMMON NORMALS: no acute distress and patient oriented x3 HENMT: COMMON NORMALS: oropharynx normal Neck/C-Spine: COMMON NORMALS: no JVD Resp: COMMON NORMALS: normal respiratory effort and clear to auscultation bilaterally AUSCULTATION: clear to auscultation bilaterally Cardio: COMMON NORMALS: no JVD, regular rhythm, S1 normal heart sound present, S2 normal heart sound present and No murmurs present (Cardio) RHYTHM: regular rhythm HEART SOUNDS: S1 normal heart sound present and S2 normal heart sound present GI: COMMON NORMALS: Normal to inspection, nondistended, normoactive bowel sounds present, Soft to palpation and non-tender PALPATION: Yes Soft to p alpation Extremity: COMMON NORMALS: no joint enlargement and no pedal edema Neuro: COMMON NORMALS: patient oriented x3 and moves all extremities Skin: COMMON NORMALS: no rashes or lesions noted GENERAL SKIN EXAM: no rashes or lesions noted Data : 02/13/20 19:54 02/13/20 19:54 Micro: Microbiology 02/13/20 21:34 Blood Culture - Preliminary Blood SPECIMEN COLLECTED 02/13/20 21:31 Blood Culture - Preliminary Blood SPECIMEN COLLECTED A&P Assessment and plan (1) Respiratory failure: Acute hypoxic respiratory failure, secondary to pneumonia, COPD exacerbation. Bilateral patchy infiltrates on x-ray. Cough, mostly nonproductive. Obtain sputum culture if possible. At this time we will continue antibiotic coverage with Levaquin and vancomycin. Obtain MRSA PCR. Urine antigens. Rapid COVID-19 test negative currently and during prior ER visit, however, confirmatory PCR testing requested. Status: Acute (2) Pneumonia: As above. Status: Acute Qualifiers: Laterality: bilateral Lung location: unspecified part of lung Pneumonia type: due to unspecified organism Qualified Code(s): J18.9 - Pneumonia, unspecified organism (3) COPD exacerbation: Antibiotics as above. Solu-Medrol. BiPAP support. Wean as tolerating. Collect sputum culture. He is not normally on oxygen. At home says has a nebulizer. Status: Acute (4) Gastroenteritis: Improved. Some nausea today, but vomiting and diarrhea better. Status: Acute Attestations Medical Necessity Statement*: Admission of over 2 midnights for respiratory failure. Coding Level of Care Code Acute Cardiac Cath Tech for [facility] Diagnoses Respiratory failure J96.90 Pneumonia J18.9 Laterality: bilateral Lung location: unspecified part of lung Pneumonia type: due to unspecified organism COPD exacerbation J44.1 Gastroenteritis K52.9
--- NOTE | 2020-02-14 03:28 | PC.PHAR ---
Vancomycin is dosed at 1gm IVPB every 24 hours to produce a predicted trough level of 11.78 (population based pharmacokinetic analysis). A trough level has been ordered from the lab to be obtained before the fourth dose to confirm and adjust if needed.
[2020-02-14] MEDS: sodium chloride 0.9% 1,000 ML 999 ML IV (04:39)
[2020-02-14] MEDS: enoxaparin 40 mg/0.4 mL Syringe SUBCUT (04:42)
[2020-02-14] MEDS: metoprolol tartrate 50 mg Tablet PO ×2 (04:43→16:53)
[2020-02-14] MEDS: levoFLOXacin 750 mg Tablet PO (04:44)
--- NOTE | 2020-02-14 05:58 | XR_ITS ---
WS: [id number] PORTABLE CHEST HISTORY: dyspnea/cough COMPARISON: 02/13/2020 Bilateral coarse interstitial opacifications are not significantly changed. Benign granuloma central LEFT lung. No pleural effusion or pneumothorax. Cardiac size: Normal. Mediastinum/Aorta: Mild atherosclerosis aorta. No osseous abnormality seen. XR/XR chest 1V portable [id number] IMPRESSION: Bilateral multilobar opacifications consistent with pneumonia with no improveme nt since 02/13/2020.
[2020-02-14] MEDS: piperacillin-tazobactam 3.375 GM in sodium chloride 0.9% (plus) 50 ML IV ×3 (06:33→21:36)
[2020-02-14 06:57] LABS: Basophils % 0.1 %; Eosinophils % 0.1 %; Hematocrit 40.5 % (42.0-52.0); Hemoglobin 13.6 g/dL (11.7-16.6); Lymphocytes # 0.4 10^3/uL (0.8-4.8); Lymphocytes % 4.7 %; Mean Corpuscular HGB Conc 33.6 g/dL (30.0-36.0); Mean Corpuscular Volume 92.3 fL (80-94); Mean Platelet Volume 11.1 fL (7.4-10.4); Monocytes # 0.4 10^3/uL (0.2-0.9); Monocytes % 4.5 %; Neutrophils # 7.69 10^3/uL (1.8-7.7); Neutrophils % 89.7 %; Nucleated Red Blood Cells % 0 %; Platelet Count 152 10^3/cmm (130-400); Red Blood Count 4.39 10^6/uL (4.1-5.3); Red Cell Distribution Width 13.2 % (12.1-15.1); White Blood Count 8.6 10^3/uL (4.0-10.0)
[2020-02-14 07:09] LABS: Anion Gap 13.4 (5-19); Blood Urea Nitrogen 16 mg/dL (8-23); Calcium 7.8 mg/dL (8.5-10.5); Carbon Dioxide 25 mmol/L (22-29); Chloride 99 mmol/L (98-107); Glomerular Filtration Rate 84.4 mL/min (90-130); Glucose 132 mg/dL (65-115); Osmolality Calculated 279 mOsm/kg (285-295); Potassium 4.4 mmol/L (3.5-5.1); Sodium 133 mmol/L (136-145)
[2020-02-14 08:08] LABS: ABG PH Result 7.49 (7.35-7.45); Base Excess ABG 3.4 mmol/L (-2.0-2.0); HCO3 ABG 26.5 mmol/L (22-26); Oxygen Device BIPAP; PO2 ABG 92.8 mmHg (80.0-100.0); Potassium Level - ABG 4.4 mmol/L (3.5-5.0)
[2020-02-14 08:09] LABS: Arterial Blood Gas Hematocrit 45.1 % (42-52); BIPAP 14/10; HGB O2 Sat 97.6 % (95-100); Ionized Calcium Level - ABG 1.1 mmol/L (1.1-1.4); Total Hemoglobin 14.7 g/dL (14-18)
[2020-02-14 08:10] LABS: Carboxyhemoglobin 0.3 %THgb (0.4-20.1); Methemoglobin 0.1 % (0.4-1.5)
[2020-02-14] MEDS: pantoprazole DR 40 mg Tablet PO (09:52)
[2020-02-14] MEDS: aspirin 81 mg EC Tablet PO (09:52)
--- NOTE | 2020-02-14 11:44 | PM.PN ---
Subjective Subjective: Interval history: Mr.Taylor Grijalva is still significantly short of breath.He is on HHFONC, that is helping him. Currently he is @ 85% FIO2/ 50 Ls. Tmax :100.1 Other Vitals and labs have been reviewed. Medications: Reviewed: Yes Vitals/I&O/Wt Last Vital Signs Temp 99.8 F H 02/13/20 18:59 Pulse 81 02/14/20 11:41 Resp 22 H 02/14/20 08:07 BP 117/73 02/14/20 11:41 Pulse Ox 95 02/14/20 11:41 02/13/20 02/14/20 02/14/20 22:59 06:59 14:59 Intake Total 50 / 50 Output Total 0 / 0 Balance 50 / 50 Weight last 48 hrs Weight 65.771 kg Physical Exam Const: COMMON NORMALS: patient oriented x3 HENMT: COMMON NORMALS: normocephalic, atraumatic and hearing grossly normal bilaterally HEAD & SCALP: normocephalic and atraumatic Eye: GENERAL EYE: appearance normal, both eyes and all related structures Chest: COMMONS NORMALS: normal inspection of the chest and normal palpation of entire chest wall CHEST: Yes Symmetrical chest wall rise Resp: COMMON NORMALS: normal respiratory effort, No retractions, No use of accessory muscles and clear to auscultation bilaterally EFFORT & INSPECTION: Yes symmetric chest movement AUSCULTATION: clear to auscultation bilaterally Cardio: COMMON NORMALS: regular rate, regular rhythm, S1 normal heart sound present, S2 normal heart sound present, No gallops present (Cardio), No murmurs present (Cardio), No rub (Cardio) and Peripheral pulses 2+ throughout RATE: regular rate RHYTHM: regular rhythm HEART SOUNDS: S1 normal heart sound present and S2 normal heart sound present PERIPHERAL PULSES: Peripheral pulses 2+ throughout GI: COMMON NORMALS: Normal to inspection, nondistended, normoactive bowel sounds present, Soft to palpation, non-tender, No hepatosplenomegaly present and no masses AUSCULTATION: Yes normoactive bowel sounds PALPATION: Yes Soft to palpation and Yes No hepatosplenomegaly present RECTAL EXAM: Yes deferred Extremity: COMMON NORMALS: no clubbing, cyanosis or edema and no pedal edema Neuro: COMMON NORMALS: patient oriented x3 Data : 02/14/20 06:40 02/14/20 06:40 Micro: Microbiology 02/13/20 21:34 Blood Culture - Preliminary Blood SPECIMEN COLLECTED 02/13/20 21:31 Blood Culture - Preliminary Blood SPECIMEN COLLECTED A&P Assessment and plan (1) Respiratory failure: Acute hypoxic respiratory failure, secondary to pneumonia, COPD exacerbation. Bilateral patchy infiltrates on x-ray. Cough, mostly nonproductive. Obtain sputum culture if possible. At this time we will continue antibiotic coverage with Levaquin and vancomycin. Obtain MRSA PCR. Urine antigens. Rapid COVID-19 test negative currently and during prior ER visit, however, confirmatory PCR testing requested. Status: Acute (2) Pneumonia: As above. Status: Acute Qualifiers: Laterality: bilateral Lung location: unspecified part of lung Pneumonia type: due to unspecified organism Qualified Code(s): J18.9 - Pneumonia, unspecified organism (3) COPD exacerbation: Antibiotics as above. Solu-Medrol. BiPAP support. Wean as tolerating. Collect sputum culture. He is not normally on oxygen. At home says has a nebulizer. Status: Acute (4) Gastroenteritis: Improved. Some nausea today, but vomiting and diarrhea better. Status: Acute Attestations Medical Necessity Statement*: Patient needs to be in hospital for the management of R/F 2/2 PNA/COPD Exacerbation Coding Level of Care Code Acute Pastry Cook Apprentice for [facility] Fwd Exam Comprehensive Diagnoses Respiratory failure J96.90 Pneumonia J18.9 Laterality: bilateral Lung location: unspecified part of lung Pneumonia type: due to unspecified organism COPD exacerbation J44.1 Gastroenteritis K52.9
[2020-02-14] MEDS: vancomycin 1,000 MG in sodium chloride 0.9% 250 ML 250 MG IV (13:28)
[2020-02-14 22:15] LABS: Coronavirus Test Green County DETECTED
[2020-02-15] VITALS (39 sets, daily range): BP systolic 106–149; BP diastolic 73–94; PULSE 72–101; RESP 16–21; TEMP 36.8–36.9; O2SAT 83–96
[2020-02-15] MEDS: vancomycin 1,000 MG in sodium chloride 0.9% 250 ML 250 MG IV ×2 (00:36→12:43)
--- NOTE | 2020-02-15 02:00 | PC.NURSE ---
Received results from patient's send out COVID test. Patient also having increased work of breathing et gets short of breath when talking. Notified physician on-call. New orders noted et implemented. Will continue to monitor.
[2020-02-15] MEDS: enoxaparin 40 mg/0.4 mL Syringe SUBCUT (02:49)
[2020-02-15] MEDS: levoFLOXacin 750 mg Tablet PO (02:49)
[2020-02-15] MEDS: metoprolol tartrate 50 mg Tablet PO ×2 (02:49→14:47)
[2020-02-15] MEDS: FUROsemide 10 mg/mL SDV 4mL 40 MG IVP (03:33)
[2020-02-15] MEDS: remdesivir 200 MG in sodium chloride 0.9% (100 ml) 100 ML 100 MG IV (03:34)
[2020-02-15 03:55] LABS: Basophils % 0.2 %; Hematocrit 44.1 % (42.0-52.0); Hemoglobin 14.8 g/dL (11.7-16.6); Lymphocytes # 0.6 10^3/uL (0.8-4.8); Lymphocytes % 4.8 %; Mean Corpuscular HGB Conc 33.6 g/dL (30.0-36.0); Mean Corpuscular Hemoglobin 31.2 pg (28.0-34.0); Mean Corpuscular Volume 92.8 fL (80-94); Mean Platelet Volume 11.7 fL (7.4-10.4); Monocytes # 0.6 10^3/uL (0.2-0.9); Monocytes % 4.2 %; Neutrophils # 11.67 10^3/uL (1.8-7.7); Nucleated Red Blood Cells % 0 %; Platelet Count 190 10^3/cmm (130-400); Red Blood Count 4.75 10^6/uL (4.1-5.3); Red Cell Distribution Width 12.9 % (12.1-15.1)
[2020-02-15] MEDS: dexamethasone 4 mg/mL INJ 6 MG IVP (05:11)
[2020-02-15 05:29] LABS: Blood Urea Nitrogen 17 mg/dL (8-23); Calcium 8.2 mg/dL (8.5-10.5); Carbon Dioxide 27 mmol/L (22-29); Chloride 102 mmol/L (98-107); Glomerular Filtration Rate 84.4 mL/min (90-130); Glucose 164 mg/dL (65-115); Osmolality Calculated 293 mOsm/kg (285-295); Sodium 139 mmol/L (136-145)
[2020-02-15] MEDS: piperacillin-tazobactam 3.375 GM in sodium chloride 0.9% (plus) 50 ML IV ×3 (06:26→22:28)
--- NOTE | 2020-02-15 07:22 | PC.NURSE ---
Patient belongings packed (cell phone and clothes), placed on 100 % NRB, placed on transport monitor. [facility] with RN et RT. Report given to KINGSTON HOOVER. Patient tolerated transport well.
[2020-02-15] MEDS: budesonide 0.5 mg/2 mL Neb INHALATION ×2 (08:59→20:06)
[2020-02-15] MEDS: albuterol 8 gm MDI 1 PUFF INHALATION ×2 (09:00→20:06)
[2020-02-15] MEDS: pantoprazole DR 40 mg Tablet PO ×2 (09:17→17:13)
[2020-02-15] MEDS: apixaban 5 mg Tablet 2.5 MG PO ×2 (09:17→17:13)
[2020-02-15] MEDS: aspirin 81 mg EC Tablet PO (09:17)
--- NOTE | 2020-02-15 09:26 | P.PN_ITS ---
Subjective Subjective: Interval history: was moved to VICU from ICU yesterday after he was tested positive for COVID PNA. Currently he is complaining of significant SOB which has improved from since yesterday. Currently he is on HHFNOC ( 70 % FIO2 @ 30L/Min ) and is maintaining saturation between 85 to 90 %. He has remained afebrile since admission. Other Vitals and labs have been r eviewed. Medications: Reviewed: Yes Vitals/I&O/Wt Last Vital Signs Temp 98.7 F 02/14/20 20:00 Pulse 88 02/15/20 09:05 Resp 20 H 02/15/20 09:03 BP 128/82 02/15/20 04:00 Pulse Ox 88 L 02/15/20 09:03 02/14/20 02/15/20 02/15/20 22:59 06:59 14:59 Intake Total 400 / 700 700 / 1400 Output Total 350 / 350 950 / 1300 Balance 50 / 350 -250 / 100 Weight last 48 hrs Weight 75.296 kg Weight 65.771 kg Physical Exam Const: COMMON NORMALS: patient oriented x3 HENMT: COMMON NORMALS: normocephalic, atraumatic, hearing grossly normal bilat erally and external ears normal HEAD & SCALP: normocephalic and atraumatic EXTERNAL EAR: Yes external ears normal Eye: COMMON NORMALS: no scleral icterus GENERAL EYE: appearance normal, both eyes and all related structures Chest: COMMONS NORMALS: normal inspection of the chest and normal palpation of entire chest wall CHEST: Yes Symmetrical chest wall rise Resp: COMMON NORMALS: normal respiratory effort, No retractions, No use of accessory muscles and clear to auscultation bilaterally EFFORT & INSPECTION: Yes symmetric chest movement AUSCULTATION: clear to auscultation bilaterally Cardio: COMMON NORMALS: regular rate, regular rhythm, S1 normal heart sound present, S2 normal heart sound present, No gallops present (Cardio), No murmurs present (Cardio), No rub (Cardio) and Peripheral pulses 2+ throughout RATE: regular rate RHYTHM: regular rhythm HEART SOUNDS: S1 normal heart sound present and S2 normal heart sound present PERIPHERAL PULSES: Peripheral pulses 2+ throughout GI: COMMON NORMALS: Normal to inspection, nondistended, normoactive bowel sounds present, Soft to palpation, non-tender, No hepatosplenomegaly present and no masses AUSCULTATION: Yes normoactive bowel sounds PALPATION: Yes Soft to palpation and Yes No hepatosplenomegaly present RECTAL EXAM: Yes deferred Extremity: COMMON NORMALS: no clubbing, cyanosis or edema and no pedal edema Neuro: COMMON NORMALS: patient oriented x3 Data : 02/15/20 03:31 02/15/20 03:31 Micro: Microbiology 02/13/20 21:34 Blood Culture - Preliminary Blood NEGATIVE TO DATE 02/13/20 21:31 Blood Culture - Preliminary Blood NEGATIVE TO DATE A&P Assessment and plan (1) Respiratory failure: Acute hypoxic respiratory failure, secondary to COVID pneumonia, COPD exacerbation. Bilateral patchy infiltrates on x-ray. Urine antigens. Blood Culture : NTD Sputum Culture Urine Culture Rapid COVID-19 test negative COVID PCR: Positive On COVID Protocol REM (02/14-02/18 ) Dexamethsone 6 mg I.V Daily Eliquis 2.5 mg q12 h daily Acorbic acid Zinc Nebs Supplemental oxygen Vancomycin ( 02/13-T.D ) Zosyn ( 02/13-T.D ) Levofloxacin ( 02/13 -TD ) Status: Acute (2) Pneumonia due to COVID-19 virus: Status: Acute (3) Sepsis: Status: Acute (4) COPD exacerbation: Status: Acute (5) Gastroenteritis: Resolved Status: Acute Attestations Medical Necessity Statement*: Patient needs to be in hospital for the management of R/F and Sepsis 2/2 COVID PNA Coding Level of Care Code Acute Cutter And Presser for [facility] Fw Diagnoses Respiratory failure J96.90 Pneumonia due to COVID-19 virus U07.1; J12.89 Sepsis A41.9 COPD exacerbation J44.1 Gastroenteritis K52.9
[2020-02-15] MEDS: albuterol 8 gm MDI 2 PUFF INHALATION (14:49)
--- NOTE | 2020-02-15 15:23 | PC.RESP ---
PULMONARY REHAB INFORMATION SENT TO PATIENT.
[2020-02-15] MEDS: ascorbic acid 500 mg Tablet PO (17:56)
[2020-02-16] VITALS (35 sets, daily range): BP systolic 106–151; BP diastolic 67–93; PULSE 56–99; RESP 10–25; TEMP 36.4–37.1; O2SAT 83–95
[2020-02-16 01:14] LABS: Vancomycin Trough 12.3 ug/mL (10-15)
[2020-02-16] MEDS: vancomycin 1,000 MG in sodium chloride 0.9% 250 ML 250 MG IV ×2 (01:31→11:38)
--- NOTE | 2020-02-16 02:00 | PC.NURSE ---
Received patient's vanc trough that was obtained at 2330 on 02/15/20. Trough 12.5. Consulted pharmacy. Will proceed to give mid-night 1 gram vanco dose.
[2020-02-16] MEDS: levoFLOXacin 750 mg Tablet PO (02:04)
[2020-02-16] MEDS: metoprolol tartrate 50 mg Tablet PO ×2 (03:04→18:02)
[2020-02-16 04:40] LABS: Basophils % 0.2 %; Hematocrit 42.5 % (42.0-52.0); Lymphocytes # 0.7 10^3/uL (0.8-4.8); Lymphocytes % 3.7 %; Mean Corpuscular HGB Conc 32.9 g/dL (30.0-36.0); Mean Corpuscular Hemoglobin 30.8 pg (28.0-34.0); Mean Corpuscular Volume 93.6 fL (80-94); Mean Platelet Volume 11.1 fL (7.4-10.4); Monocytes # 0.8 10^3/uL (0.2-0.9); Monocytes % 4.7 %; Neutrophils # 15.75 10^3/uL (1.8-7.7); Neutrophils % 90.4 %; Nucleated Red Blood Cells % 0 %; Platelet Count 245 10^3/cmm (130-400); Red Blood Count 4.54 10^6/uL (4.1-5.3); Red Cell Distribution Width 13.3 % (12.1-15.1); White Blood Count 17.4 10^3/uL (4.0-10.0)
[2020-02-16 05:11] LABS: Anion Gap 14.7 (5-19); Blood Urea Nitrogen 30 mg/dL (8-23); Calcium 8.4 mg/dL (8.5-10.5); Carbon Dioxide 28 mmol/L (22-29); Chloride 103 mmol/L (98-107); Glucose 117 mg/dL (65-115); Osmolality Calculated 301 mOsm/kg (285-295); Potassium 3.7 mmol/L (3.5-5.1); Sodium 142 mmol/L (136-145)
[2020-02-16] MEDS: dexamethasone 4 mg/mL INJ 6 MG IVP (05:23)
[2020-02-16] MEDS: remdesivir 100 MG in sodium chloride 0.9% (100 ml) 100 ML IV (05:24)
[2020-02-16] MEDS: piperacillin-tazobactam 3.375 GM in sodium chloride 0.9% (plus) 50 ML IV ×3 (07:07→22:03)
[2020-02-16] MEDS: aspirin 81 mg EC Tablet PO (08:52)
[2020-02-16] MEDS: pantoprazole DR 40 mg Tablet PO ×2 (08:52→18:02)
[2020-02-16] MEDS: zinc gluconate 50 mg Tablet PO (08:52)
[2020-02-16] MEDS: ascorbic acid 500 mg Tablet PO ×2 (08:52→18:02)
[2020-02-16] MEDS: apixaban 5 mg Tablet 2.5 MG PO ×2 (08:52→18:02)
[2020-02-16] MEDS: budesonide 0.5 mg/2 mL Neb INHALATION ×2 (09:33→20:45)
[2020-02-16] MEDS: guaiFENesin 600 mg Tablet PO (18:02)
--- NOTE | 2020-02-16 18:35 | PM.PN ---
Subjective Subjective: Interval history: Mr.Taylor jones was seen resting comfortably.His SOB has improved.He has remained afebrile. Currently continues to be on HHFONC.( 40Ls FIO2 : 50 % ) His other labs and vitals have been reviewed. Medications: Reviewed: Yes Vitals/I&O/Wt Last Vital Signs Temp 98.4 F 02/16/20 12:00 Pulse 90 02/16/20 17:18 Resp 18 02/16/20 17:18 BP 121/77 02/16/20 13:00 Pulse Ox 91 02/16/20 17:18 02/16/20 02/16/20 02/16/20 06:59 14:59 22:59 Intake Total 1420 / 3045 900 / 900 50 / 950 Output Total 650 / 1900 700 / 700 Balance 770 / 1145 200 / 200 50 / 250 Weight last 48 hrs Weight 75.296 kg Weight 75.296 kg Physical Exam Const: COMMON NORMALS: patient oriented x3 HENMT: COMMON NORMALS: normocephalic and atraumatic HEAD & SCALP: normocephalic and atraumatic Resp: COMMON NORMALS: clear to auscultation bilaterally EFFORT & INSPECTION: Yes symmetric chest movement AUSCULTATION: clear to auscultation bilaterally Cardio: COMMON NORMALS: regular rate, regular rhythm, S1 normal heart sound present, S2 normal heart sound present, No gallops present (Cardio), No murmurs present (Cardio), No rub (Cardio) and Peripheral pulses 2+ throughout RATE: regular rate RHYTHM: regular rhythm HEART SOUNDS: S1 normal heart sound present and S2 normal heart sound present PERIPHERAL PULSES: Peripheral pulses 2+ throughout GI: COMMON NORMALS: Normal to inspection, nondistended, normoactive bowel sounds present, Soft to palpation, non-tender, No hepatosplenomegaly present and no masses AUSCULTATION: Yes normoactive bowel sounds PALPATION: Yes Soft to palpation and Yes No hepatosplenomegaly present RECTAL EXAM: Yes deferred Extremity: COMMON NORMALS: no clubbing, cyanosis or edema and no pedal edema Neuro: COMMON NORMALS: patient oriented x3 Data : 02/16/20 02:00 02/16/20 02:00 A&P Assessment and plan (1) Respiratory failure: Acute hypoxic respiratory failure, secondary to COVID pneumonia, COPD exacerbation. Bilateral patchy infiltrates on x-ray. Urine antigens. Blood Culture : NTD Sputum Culture Urine Culture Rapid COVID-19 test negative COVID PCR: Positive On COVID Protocol REM (02/14-02/18 ) Dexamethsone 6 mg I.V Daily S/P 1 Bag Covalasent Plasma Eliquis 2.5 mg q12 h daily Acorbic acid Zinc Nebs Supplemental oxygen Vancomycin ( 02/13-T.D ) Zosyn ( 02/13-T.D ) Levofloxacin ( 02/13 -02-15 ) Status: Acute (2) Pneumonia due to COVID-19 virus: Status: Acute (3) Sepsis: Status: Acute (4) COPD exacerbation: Status: Acute (5) Gastroenteritis: Resolved Status: Inactive Attestations Medical Necessity Statement*: Patient needs to be in hospital for the management of R/F 2/2 COVID PNA Coding Level of Care Code Acute Adult Education Manager for [facility] Fwd Diagnoses Respiratory failure J96.90 Pneumonia due to COVID-19 virus U07.1; J12.89 Sepsis A41.9 COPD exacerbation J44.1 Gastroenteritis K52.9
[2020-02-16] MEDS: albuterol 8 gm MDI 2 PUFF INHALATION (20:46)
[2020-02-17] VITALS (31 sets, daily range): BP systolic 91–149; BP diastolic 59–114; PULSE 64–91; RESP 15–31; TEMP 36.7–37; O2SAT 84–95
[2020-02-17] MEDS: vancomycin 1,000 MG in sodium chloride 0.9% 250 ML 250 MG IV ×2 (01:12→11:08)
--- NOTE | 2020-02-17 01:30 | PC.NURSE ---
PT WAS STATING IN THE LOW 80'S. RT PUT PT ON BIPAP AND STATS INCREASED TO HIGH 80'S AND LOW 90'S. PT COULDN'T TOLERATE BIPAP MASK. PT STATES THAT IT'S TOO DRY AND THAT HE FEELS CLAUSTROPHOBIC. PT DENIES PAIN. WILL CONTINUE TO MONITOR.
[2020-02-17] MEDS: FUROsemide 10 mg/mL SDV 2mL 20 MG IVP ×2 (04:20→11:08)
[2020-02-17] MEDS: metoprolol tartrate 50 mg Tablet PO ×2 (04:22→17:41)
[2020-02-17] MEDS: dexamethasone 4 mg/mL INJ 6 MG IVP (05:06)
[2020-02-17] MEDS: remdesivir 100 MG in sodium chloride 0.9% (100 ml) 100 ML IV (05:13)
[2020-02-17] MEDS: piperacillin-tazobactam 3.375 GM in sodium chloride 0.9% (plus) 50 ML IV ×3 (06:26→22:00)
[2020-02-17 06:29] LABS: Basophils % 0.1 %; Eosinophils % 0.1 %; Hematocrit 45.6 % (42.0-52.0); Hemoglobin 14.7 g/dL (11.7-16.6); Lymphocytes # 0.9 10^3/uL (0.8-4.8); Lymphocytes % 5.8 %; Mean Corpuscular HGB Conc 32.2 g/dL (30.0-36.0); Mean Corpuscular Hemoglobin 30.9 pg (28.0-34.0); Mean Platelet Volume 10.4 fL (7.4-10.4); Monocytes # 0.5 10^3/uL (0.2-0.9); Monocytes % 3.3 %; Neutrophils # 13.69 10^3/uL (1.8-7.7); Neutrophils % 88.6 %; Nucleated Red Blood Cells % 0 %; Platelet Count 237 10^3/cmm (130-400); Red Blood Count 4.75 10^6/uL (4.1-5.3); Red Cell Distribution Width 13.7 % (12.1-15.1); White Blood Count 15.5 10^3/uL (4.0-10.0)
--- NOTE | 2020-02-17 06:32 | PC.NURSE ---
PT HAD AN UNEVENTFUL NIGHT. PT DIDN'T STAY ON BIPAP, BUT MAINTAINED STATS WITH HHF. WILL CONTINUE TO MONITOR.
[2020-02-17 06:56] LABS: Anion Gap 14.9 (5-19); Blood Urea Nitrogen 27 mg/dL (8-23); Calcium 7.9 mg/dL (8.5-10.5); Carbon Dioxide 28 mmol/L (22-29); Chloride 106 mmol/L (98-107); Glomerular Filtration Rate 60.6 mL/min (90-130); Glucose 74 mg/dL (65-115); Osmolality Calculated 304 mOsm/kg (285-295); Potassium 3.9 mmol/L (3.5-5.1); Sodium 145 mmol/L (136-145)
--- NOTE | 2020-02-17 07:27 | PC.NURSE ---
Convalescent plasma was transfused in the appropriate time frame. Documentation was not transferred over when plasma was started. No complications noted throughout transfusion.
[2020-02-17] MEDS: guaiFENesin 600 mg Tablet PO ×2 (08:37→17:41)
[2020-02-17] MEDS: ascorbic acid 500 mg Tablet PO ×2 (08:37→17:41)
[2020-02-17] MEDS: pantoprazole DR 40 mg Tablet PO ×2 (08:37→17:41)
[2020-02-17] MEDS: zinc gluconate 50 mg Tablet PO (08:37)
[2020-02-17] MEDS: apixaban 5 mg Tablet 2.5 MG PO ×2 (08:37→17:42)
[2020-02-17] MEDS: budesonide 0.5 mg/2 mL Neb INHALATION ×2 (08:37→19:37)
[2020-02-17] MEDS: aspirin 81 mg EC Tablet PO (08:37)
--- NOTE | 2020-02-17 10:20 | PC.SOCIAL ---
IM follow up explained by phone and patient verbalized understanding. No questions voiced.
[2020-02-17] MEDS: LORazepam 2 mg/mL INJ 1 mL 1 MG IVP (11:55)
--- NOTE | 2020-02-17 13:48 | P.PN_ITS ---
Subjective Subjective: Interval history: had a rough night yesterday.He says other than that he feels fine. Currently his supplemental oxygen requirement has gone up.Though he has remained afebrile. Medications: Reviewed: Yes Vitals/I&O/Wt Last Vital Signs Temp 98.6 F 02/17/20 08:00 Pulse 67 02/17/20 13:00 Resp 25 H 02/17/20 13:00 BP 91/59 02/17/20 13:00 Pulse Ox 89 L 02/17/20 13:00 02/16/20 02/17/20 02/17/20 22:59 06:59 14:59 Intake Total 300 / 1200 1000 / 2200 450 / 450 Output Total 900 / 1600 1250 / 1250 Balance 300 / 500 100 / 600 -800 / -800 Weight last 48 hrs Weight 75.296 kg Physical Exam Const: COMMON NORMALS: patient oriented x3 HENMT: COMMON NORMALS: normocephalic and atraumatic HEAD & SCALP: normoce phalic and atraumatic Chest: COMMONS NORMALS: normal inspection of the chest CHEST: Yes Symmetr ical chest wall rise Resp: COMMON NORMALS: clear to auscultation bilaterally EFFORT & INSPECTION: Yes symmetric chest movement AUSCULTATION: clear to auscultation bilaterally Cardio: COMMON NORMALS: regular rate, regular rhythm, S1 normal heart sound present, S2 normal heart sound present, No gallops present (Cardio), No murmurs present (Cardio), No rub (Cardio) and Peripheral pulses 2+ throughout RATE: regular rate RHYTHM: regular rhythm HEART SOUNDS: S1 normal heart sound present and S2 normal heart sound present PERIPHERAL PULSES: Peripheral pulses 2+ throughout GI: COMMON NORMALS: Normal to inspection, nondistended, normoactive bowel sounds present, Soft to palpation, non-tender, No hepatosplenomegaly present and no masses AUSCULTATION: Yes normoactive bowel sounds PALPATION: Yes Soft to palpation and Yes No hepatosplenomegaly present RECTAL EXAM: Yes deferred Extremity: COMMON NORMALS: no clubbing, cyanosis or edema and no pedal edema Neuro: COMMON NORMALS: patient oriented x3 Data : 02/17/20 03:20 02/17/20 03:20 A&P Assessment and plan (1) Respiratory failure: Acute hypoxic respiratory failure, secondary to COVID pneumonia, COPD exacerbation. Bilateral patchy infiltrates on x-ray. Urine antigens. Blood Culture : NTD Sputum Culture Urine Culture Rapid COVID-19 test negative COVID PCR: Positive On COVID Protocol REM (02/14-02/18 ) Dexamethsone 6 mg I.V Daily S/P 1 Bag Covalasent Plasma Eliquis 2.5 mg q12 h daily Acorbic acid Zinc Nebs Supplemental oxygen Vancomycin ( 02/13-T.D ) Zosyn ( 02/13-T.D ) Levofloxacin ( 02/13 -02-15 ) Status: Acute (2) Pneumonia due to COVID-19 virus: Status: Acute (3) Sepsis: Status: Acute (4) COPD exacerbation: Status: Acute (5) Gastroenteritis: Resolved Status: Inactive Attestations Medical Necessity Statement*: Patient needs to be in hospital for the manageme nt of R/F 2/2 COVID PNA Coding Level of Care Code Acute Hob Machine Operator for [facility] Fwd Diagnoses Respiratory failure J96.90 Pneumonia due to COVID-19 virus U07.1; J12.89 Sepsis A41.9 COPD exacerbation J44.1 Gastroenteritis K52.9
[2020-02-17 18:01] LABS: ABG PCO2 34.9 mmHg (35-45); Blood Gas Operator Identificat gc; Blood Gas Sample Site Brachial, right; Blood Gas Sample Type Arterial
--- NOTE | 2020-02-17 20:04 | PC.NURSE ---
PT IS RESTING IN BED. PT STATES THAT THEY ARE TIRED. DR MOHR HELD LASIX TONIGHT TO HELP PT SLEEP AND TO RESUME LASIX IN THE MORNING. PT DENIES PAIN AT THIS TIME WILL CONTINUE TO MONITOR.
[2020-02-18] VITALS (13 sets, daily range): BP systolic 99–123; BP diastolic 60–98; PULSE 63–88; RESP 16–29; TEMP 36.9–37; O2SAT 84–92; BMI 21.9
[2020-02-18] MEDS: vancomycin 1,000 MG in sodium chloride 0.9% 250 ML 250 MG IV ×2 (00:09→12:55)
--- NOTE | 2020-02-18 03:50 | PC.NURSE ---
PT HAD AN UNEVENTFUL NIGHT. PT RESTED WITH EYES CLOSED. PT STATES THAT THEY SLEPT PRETTY WELL UNTIL GETTING A PT IN THE ROOM. PT DENIES PAIN. WILL CONTINUE TO MONITOR.
[2020-02-18 04:55] LABS: Basophils % 0.3 %; Eosinophils # 0.1 10^3/uL (0.0-0.8); Hematocrit 41.5 % (42.0-52.0); Hemoglobin 13.7 g/dL (11.7-16.6); Lymphocytes # 0.8 10^3/uL (0.8-4.8); Lymphocytes % 6.8 %; Mean Corpuscular Hemoglobin 30.7 pg (28.0-34.0); Mean Platelet Volume 10.8 fL (7.4-10.4); Monocytes # 0.4 10^3/uL (0.2-0.9); Monocytes % 3.6 %; Neutrophils # 10.41 10^3/uL (1.8-7.7); Neutrophils % 86.9 %; Nucleated Red Blood Cells % 0 %; Platelet Count 227 10^3/cmm (130-400); Red Blood Count 4.46 10^6/uL (4.1-5.3); Red Cell Distribution Width 13.6 % (12.1-15.1)
[2020-02-18 05:22] LABS: Alanine Aminotransferase 53 U/L (0-41); Albumin Level 2.2 g/dL (3.5-5.2); Alkaline Phosphatase 53 IU/L (40-130); Blood Urea Nitrogen 24 mg/dL (8-23); Calcium 7.6 mg/dL (8.5-10.5); Carbon Dioxide 27 mmol/L (22-29); Chloride 103 mmol/L (98-107); D Dimer >= 20.00 ug/mIFEU (0-0.59); Globulin 2.7 g/dL (1.3-4.6); Glomerular Filtration Rate 74.8 mL/min (90-130); Glucose 103 mg/dL (65-115); Osmolality Calculated 292 mOsm/kg (285-295); Sodium 139 mmol/L (136-145); Total Bilirubin 0.8 mg/dL (0.15-1.2); Total Protein 4.9 g/dL (6.6-8.7)
[2020-02-18 05:27] LABS: Anion Gap 12.6 (5-19); Aspartate Amino Transferase 66 U/L (0-40); Potassium 3.6 mmol/L (3.5-5.1)
[2020-02-18] MEDS: remdesivir 100 MG in sodium chloride 0.9% (100 ml) 100 ML IV (05:33)
--- NOTE | 2020-02-18 06:00 | XRR_ITS ---
PROCEDURE INFORMATION: Exam: XR Chest, 1 View Exam date and time: 02/18/2020 4:33 AM Age: 64 years old Clinical indication: Condition or disease; Lung condition and disease; Pneumonia and respiratory distress; Other: Not specified; Additional info: Pna TECHNIQUE: Imaging protocol: XR of the chest Views: 1 view. COMPARISON: CR XR chest 1V portable [id number] 02/14/2020 6:12 AM FINDINGS: Lungs: Bilateral, asymmetric airspace disease. This appears to have worsened in the interval. This could be due to pneumonia given the history. Pleural space: No pleural effusion or pneumothorax. Heart/Mediastinum: The cardiac silhouette is not enlarged. The mediastinal contours are normal. Bones/joints: No acute osseous abnormality. XR/XR chest 1V portable [id number] IMPRESSION: Interval worsening of pneumonia.
[2020-02-18] MEDS: dexamethasone 4 mg/mL INJ 6 MG IVP (06:04)
[2020-02-18] MEDS: piperacillin-tazobactam 3.375 GM in sodium chloride 0.9% (plus) 50 ML IV ×3 (06:38→22:12)
[2020-02-18] MEDS: metoprolol tartrate 50 mg Tablet PO ×2 (06:38→17:22)
[2020-02-18] MEDS: ascorbic acid 500 mg Tablet PO ×2 (08:02→17:22)
[2020-02-18] MEDS: pantoprazole DR 40 mg Tablet PO ×2 (08:02→17:22)
[2020-02-18] MEDS: aspirin 81 mg EC Tablet PO (08:02)
[2020-02-18] MEDS: zinc gluconate 50 mg Tablet PO (08:02)
[2020-02-18] MEDS: guaiFENesin 600 mg Tablet PO ×2 (08:02→17:23)
[2020-02-18] MEDS: apixaban 5 mg Tablet 2.5 MG PO ×2 (08:02→17:23)
[2020-02-18] MEDS: budesonide 0.5 mg/2 mL Neb INHALATION ×2 (08:36→19:48)
[2020-02-18] MEDS: FUROsemide 10 mg/mL SDV 2mL 20 MG IVP ×2 (09:46→22:12)
--- NOTE | 2020-02-18 12:18 | P.PN_ITS ---
Subjective Subjective: Interval history: Mr.David WATKINS has improved a lot , his supplemental oxygen requirement has gown down. He has remained afebrile.Has good urine output. Other vitals and labs have been reviewed. Medications: Reviewed: Yes Vitals/I&O/Wt Last Vital Signs Temp 98.4 F 02/18/20 06:03 Pulse 70 02/18/20 11:15 Resp 18 02/18/20 11:15 BP 120/82 02/18/20 09:36 Pulse Ox 90 02/18/20 11:15 02/17/20 02/18/20 02/18/20 22:59 06:59 14:59 Intake Total 200 / 900 830 / 1730 350 / 350 Output Total 1050 / 2300 450 / 2750 1000 / 1000 Balance -850 / -1400 380 / -1020 -650 / -650 Weight last 48 hrs Weight 73.482 kg Physical Exam Const: COMMON NORMALS: patient oriented x3 HENMT: COMMON NORMALS: normocephalic and atraumatic HEAD & SCALP: normocephalic and atraumatic Resp: COMMON NORMALS: clear to auscultation bilaterally EFFORT & INSPECTION: Yes symmetric chest movement AUSCULTATION: clear to auscultation bilaterally Cardio: COMMON NORMALS: regular rate, regular rhythm, S1 normal heart sound present, S2 normal heart sound present, No gallops present (Cardio), No murmurs present (Cardio), No rub (Cardio) and Peripheral pulses 2+ throughout RATE: regular rate RHYTHM: regular rhythm HEART SOUNDS: S1 normal heart sound present and S2 normal heart sound present PERIPHERAL PULSES: Peripheral pulses 2+ throughout GI: COMMON NORMALS: Normal to inspection, nondistended, normoactive bowel sounds present, Soft to palpation, non-tender, No hepatosplenomegaly present and no masses AUSCULTATION: Yes normoactive bowel sounds PALPATION: Yes Soft to palpation and Yes No hepatosplenomegaly present RECTAL EXAM: Yes deferred Extremity: COMMON NORMALS: no clubbing, cyanosis or edema and no pedal edema Neuro: COMMON NORMALS: patient oriented x3 Data : 02/18/20 03:30 02/18/20 03:30 A&P Assessment and plan (1) Respiratory failure: Acute hypoxic respiratory failure, secondary to COVID pneumonia, COPD exacerbation. Bilateral patchy infiltrates on x-ray. Urine antigens. Blood Culture : NTD Sputum Culture: Urine Culture: Rapid COVID-19 test negative COVID PCR: Positive On COVID Protocol REM (02/14-02/18 ) Dexamethsone 6 mg I.V Daily S/P 1 Bag Covalasent Plasma Eliquis 2.5 mg q12 h daily Acorbic acid Zinc Nebs Supplemental oxygen Vancomycin ( 02/13-02/17 ) Zosyn ( 02/13-T.D ) Levofloxacin ( 02/13 -02-15 ) Status: Acute (2) Pneumonia due to COVID-19 virus: Status: Acute (3) Sepsis: Status: Acute (4) COPD exacerbation: Status: Acute (5) Gastroenteritis: Resolved Status: Inactive Attestations Medical Necessity Statement*: Patient needs to be in hospital for the management of r/f 2/2 covid pna Coding Level of Care Code Acute Yard Foreman for [facility] Fwd Diagnoses Respiratory failure J96.90 Pneumonia due to COVID-19 virus U07.1; J12.89 Sepsis A41.9 COPD exacerbation J44.1 Gastroenteritis K52.9
[2020-02-19] VITALS (11 sets, daily range): BP systolic 102–130; BP diastolic 64–81; PULSE 65–88; RESP 16–20; TEMP 36.7–37.2; O2SAT 69–93
[2020-02-19 03:01] LABS: Basophils # 0.1 10^3/uL (0.0-0.1); Basophils % 0.4 %; Eosinophils # 0.3 10^3/uL (0.0-0.8); Eosinophils % 1.6 %; Hematocrit 45.2 % (42.0-52.0); Hemoglobin 14.5 g/dL (11.7-16.6); Lymphocytes % 6.1 %; Mean Corpuscular HGB Conc 32.1 g/dL (30.0-36.0); Mean Corpuscular Hemoglobin 31.1 pg (28.0-34.0); Mean Platelet Volume 10.4 fL (7.4-10.4); Monocytes # 0.7 10^3/uL (0.2-0.9); Monocytes % 4.4 %; Neutrophils # 13.98 10^3/uL (1.8-7.7); Neutrophils % 85.5 %; Nucleated Red Blood Cells % 0 %; Platelet Count 241 10^3/cmm (130-400); Red Blood Count 4.66 10^6/uL (4.1-5.3); Red Cell Distribution Width 13.7 % (12.1-15.1); White Blood Count 16.4 10^3/uL (4.0-10.0)
[2020-02-19 04:06] LABS: Alanine Aminotransferase 45 U/L (0-41); Albumin Level 2.4 g/dL (3.5-5.2); Alkaline Phosphatase 59 IU/L (40-130); Anion Gap 13.5 (5-19); Aspartate Amino Transferase 40 U/L (0-40); Blood Urea Nitrogen 25 mg/dL (8-23); Calcium 7.9 mg/dL (8.5-10.5); Carbon Dioxide 28 mmol/L (22-29); Chloride 104 mmol/L (98-107); Globulin 2.9 g/dL (1.3-4.6); Glucose 104 mg/dL (65-115); Osmolality Calculated 299 mOsm/kg (285-295); Potassium 3.5 mmol/L (3.5-5.1); Sodium 142 mmol/L (136-145); Total Bilirubin 0.7 mg/dL (0.15-1.2); Total Protein 5.3 g/dL (6.6-8.7)
[2020-02-19] MEDS: dexamethasone 4 mg/mL INJ 6 MG IVP (05:02)
[2020-02-19] MEDS: remdesivir 100 MG in sodium chloride 0.9% (100 ml) 100 ML IV (05:02)
[2020-02-19] MEDS: metoprolol tartrate 50 mg Tablet PO ×2 (05:02→18:51)
[2020-02-19] MEDS: piperacillin-tazobactam 3.375 GM in sodium chloride 0.9% (plus) 50 ML IV (06:05)
--- NOTE | 2020-02-19 06:38 | PC.NURSE ---
Shift Summary Patient transferred from VICU to [facility]. Patient required 6-7L of oxygen over night, oxygen saturations in the high 80s. No cough observed. Patient had no complaints. Fourth dose of remdesivir infused this morning. IV discontinued to right forearm, upon arrival to floor IV was leaking. IV to Right AC patent and asymptomatic.
[2020-02-19] MEDS: budesonide 0.5 mg/2 mL Neb INHALATION ×2 (08:25→21:30)
[2020-02-19] MEDS: aspirin 81 mg EC Tablet PO (09:43)
[2020-02-19] MEDS: zinc gluconate 50 mg Tablet PO (09:43)
[2020-02-19] MEDS: guaiFENesin 600 mg Tablet PO ×2 (09:43→18:51)
[2020-02-19] MEDS: apixaban 5 mg Tablet 2.5 MG PO ×2 (09:43→18:50)
[2020-02-19] MEDS: ascorbic acid 500 mg Tablet PO ×2 (09:43→18:50)
[2020-02-19] MEDS: FUROsemide 10 mg/mL SDV 2mL 20 MG IVP (09:44)
[2020-02-19] MEDS: pantoprazole DR 40 mg Tablet PO ×2 (09:44→18:51)
--- NOTE | 2020-02-19 10:15 | PC.SOCIAL ---
IMM updated Called & updated pt on Pg 2 IMM. No questions voiced. Signed, dated, timed copy in chart.
--- NOTE | 2020-02-19 11:42 | PC.NURSE ---
Went over home health options and what the ratings were. Patient picked which one he preferred and numbered them 1-3 on which he would prefer. Gave copy to tool planner doug.
--- NOTE | 2020-02-19 15:08 | P.PN_ITS ---
Subjective Subjective: Interval history: Mr.Taylor WATKINS has significantly improved. Currently he is saturating well on 4ls oxygen via nc . His labs and vital have been reviewed. Medications: Reviewed: Yes Vitals/I&O/Wt Last Vital Signs Temp 98.4 F 02/19/20 12:00 Pulse 80 02/19/20 14:27 Resp 18 02/19/20 14:27 BP 110/68 02/19/20 12:00 Pulse Ox 90 02/19/20 14:27 02/19/20 02/19/20 02/19/20 06:59 14:59 22:59 Intake Total 50 / 1550 290 / 290 Output Total 400 / 3000 Balance -350 / -1450 290 / 290 Weight last 48 hrs Weight 74.843 kg Weight 73.482 kg Physical Exam Const: COMMON NORMALS: patient oriented x3 HENMT: COMMON NORMALS: normocephalic and atraumatic HEAD & SCALP: normocephalic and atraumatic Chest: COMMONS NORMALS: normal inspection of the chest and normal palpation of entire chest wall CHEST: Yes Symmetrical chest wall rise Resp: COMMON NORMALS: normal respiratory effort, No retractions, No use of accessory muscles and clear to auscultation bilaterally EFFORT & INSPECTION: Yes symmetric chest movement AUSCULTATION: clear to auscultation bilaterally Cardio: COMMON NORMALS: regular rate, regular rhythm, S1 normal heart sound present, S2 normal heart sound present, No gallops present (Cardio), No murmurs present (Cardio), No rub (Cardio) and Peripheral pulses 2+ throughout RATE: regular rate RHYTHM: regular rhythm HEART SOUNDS: S1 normal heart sound present and S2 normal heart sound present PERIPHERAL PULSES: Peripheral pulses 2+ throughout GI: COMMON NORMALS: Normal to inspection, nondistended, normoactive bowel sounds present, Soft to palpation, non-tender, No hepatosplenomegaly present and no masses AUSCULTATION: Yes normoactive bowel sounds PALPATION: Yes Soft to palpation and Yes No hepatosplenomegaly present RECTAL EXAM: Yes deferred Extremity: COMMON NORMALS: no clubbing, cyanosis or edema and no pedal edema Neuro: COMMON NORMALS: patient oriented x3 Data : 02/19/20 02:38 02/19/20 02:38 Micro: Microbiology 02/13/20 21:34 Blood Culture - Final Blood NO GROWTH AFTER 5 DAYS 02/13/20 21:31 Blood Culture - Final Blood NO GROWTH AFTER 5 DAYS A&P Assessment and plan (1) Respiratory failure: Acute hypoxic respiratory failure, secondary to COVID pneumonia, COPD exacerbation. Bilateral patchy infiltrates on x-ray. Urine antigens. Blood Culture : NTD Sputum Culture: Urine Culture: Rapid COVID-19 test negative COVID PCR: Positive On COVID Protocol REM (02/14-02/18 ) Dexamethsone 6 mg I.V Daily S/P 1 Bag Covalasent Plasma Eliquis 2.5 mg q12 h daily Acorbic acid Zinc Nebs Supplemental oxygen Vancomycin ( 02/13-02/17 ) Zosyn ( 02/13- ) Levofloxacin ( 02/13 -02-15 ) Status: Acute (2) Pneumonia due to COVID-19 virus: Status: Acute (3) Sepsis: Status: Acute (4) COPD exacerbation: Status: Acute (5) Gastroenteritis: Resolved Status: Inactive Attestations Medical Necessity Statement*: Patient needs to be in hospital for the management of R/F 2/2 TO COVID PNA Coding Level of Care Code Acute Drying Equipment Operator for [facility] Fwd Diagnoses Respiratory failure J96.90 Pneumonia due to COVID-19 virus U07.1; J12.89 Sepsis A41.9 COPD exacerbation J44.1 Gastroenteritis K52.9
[2020-02-19] MEDS: LORazepam 2 mg/mL INJ 1 mL 1 MG IVP (23:51)
[2020-02-20] VITALS (11 sets, daily range): BP systolic 96–129; BP diastolic 61–84; PULSE 66–83; RESP 16–20; TEMP 36.4–37.1; O2SAT 90–92
[2020-02-20 04:13] LABS: Basophils # 0.1 10^3/uL (0.0-0.1); Basophils % 0.3 %; Eosinophils # 0.3 10^3/uL (0.0-0.8); Eosinophils % 2.1 %; Hematocrit 43.6 % (42.0-52.0); Hemoglobin 14.1 g/dL (11.7-16.6); Lymphocytes # 1.2 10^3/uL (0.8-4.8); Lymphocytes % 8.4 %; Mean Corpuscular HGB Conc 32.3 g/dL (30.0-36.0); Mean Corpuscular Hemoglobin 30.5 pg (28.0-34.0); Mean Corpuscular Volume 94.2 fL (80-94); Mean Platelet Volume 10.1 fL (7.4-10.4); Monocytes # 0.9 10^3/uL (0.2-0.9); Monocytes % 5.8 %; Neutrophils # 11.88 10^3/uL (1.8-7.7); Neutrophils % 81.3 %; Nucleated Red Blood Cells % 0 %; Platelet Count 274 10^3/cmm (130-400); Red Blood Count 4.63 10^6/uL (4.1-5.3); Red Cell Distribution Width 13.8 % (12.1-15.1); White Blood Count 14.6 10^3/uL (4.0-10.0)
[2020-02-20 04:45] LABS: Alanine Aminotransferase 37 U/L (0-41); Albumin Level 2.2 g/dL (3.5-5.2); Alkaline Phosphatase 61 IU/L (40-130); Anion Gap 11.5 (5-19); Aspartate Amino Transferase 25 U/L (0-40); Blood Urea Nitrogen 24 mg/dL (8-23); Calcium 8.1 mg/dL (8.5-10.5); Carbon Dioxide 28 mmol/L (22-29); Chloride 105 mmol/L (98-107); Globulin 2.9 g/dL (1.3-4.6); Glomerular Filtration Rate 84.4 mL/min (90-130); Glucose 99 mg/dL (65-115); Osmolality Calculated 296 mOsm/kg (285-295); Potassium 3.5 mmol/L (3.5-5.1); Sodium 141 mmol/L (136-145); Total Bilirubin 0.5 mg/dL (0.15-1.2); Total Protein 5.1 g/dL (6.6-8.7)
[2020-02-20] MEDS: metoprolol tartrate 50 mg Tablet PO ×2 (05:45→19:29)
[2020-02-20] MEDS: dexamethasone 4 mg/mL INJ 6 MG IVP (05:45)
[2020-02-20] MEDS: ascorbic acid 500 mg Tablet PO ×2 (08:43→19:29)
[2020-02-20] MEDS: guaiFENesin 600 mg Tablet PO ×2 (08:45→19:29)
[2020-02-20] MEDS: zinc gluconate 50 mg Tablet PO (08:45)
[2020-02-20] MEDS: apixaban 5 mg Tablet 2.5 MG PO ×2 (08:46→19:29)
[2020-02-20] MEDS: aspirin 81 mg EC Tablet PO (08:46)
[2020-02-20] MEDS: pantoprazole DR 40 mg Tablet PO ×2 (08:46→19:29)
[2020-02-20] MEDS: FUROsemide 10 mg/mL SDV 2mL 20 MG IVP (08:46)
[2020-02-20] MEDS: albuterol 8 gm MDI 2 PUFF INHALATION (09:17)
[2020-02-20] MEDS: albuterol 8 gm MDI 1 PUFF INHALATION (09:17)
[2020-02-20] MEDS: budesonide 0.5 mg/2 mL Neb INHALATION ×2 (09:21→21:46)
--- NOTE | 2020-02-20 13:12 | PM.PN ---
Subjective Subjective: Interval history: is complaining of 2/3 episodes of loose stool, as well as SOB. He continues to be on 4Ls Oxygen via [place]. Vitals/I&O/Wt Last Vital Signs Temp 97.7 F 02/20/20 11:19 Pulse 73 02/20/20 11:19 Resp 17 02/20/20 11:19 BP 108/66 02/20/20 11:19 Pulse Ox 92 02/20/20 11:19 02/19/20 02/20/20 02/20/20 22:59 06:59 14:59 Intake Total 480 / 480 Output Total 450 / 450 475 / 475 Balance -450 / 80 5 / 5 Weight last 48 hrs Weight 74.933 kg Weight 74.843 kg Physical Exam Const: COMMON NORMALS: patient oriented x3 HENMT: COMMON NORMALS: normocephalic, atraumatic and hearing grossly normal bilaterally HEAD & SCALP: normocephalic and atraumatic Chest: COMMONS NORMALS: normal inspection of the chest and normal palpation of entire chest wall CHEST: Yes Symmetrical chest wall rise Resp: COMMON NORMALS: normal respiratory effort, No retractions, No use of accessory muscles and clear to auscultation bilaterally EFFORT & INSPECTION: Yes symmetric chest movement AUSCULTATION: clear to auscultation bilaterally Cardio: COMMON NORMALS: regular rate, regular rhythm, S1 normal heart sound present, S2 normal heart sound present, No gallops present (Cardio), No murmurs present (Cardio), No rub (Cardio) and Peripheral pulses 2+ throughout RATE: regular rate RHYTHM: regular rhythm HEART SOUNDS: S1 normal heart sound present and S2 normal heart sound present PERIPHERAL PULSES: Peripheral pulses 2+ throughout GI: COMMON NORMALS: Normal to inspection, nondistended, normoactive bowel sounds present, Soft to palpation, non-tender, No hepatosplenomegaly present and no masses AUSCULTATION: Yes normoactive bowel sounds PALPATION: Yes Soft to palpation and Yes No hepatosplenomegaly present RECTAL EXAM: Yes deferred Extremity: COMMON NORMALS: no clubbing, cyanosis or edema and no pedal edema Neuro: COMMON NORMALS: patient oriented x3 Data : 02/20/20 03:40 02/20/20 03:40 A&P Assessment and plan (1) Respiratory failure: Acute hypoxic respiratory failure, secondary to COVID pneumonia, COPD exacerbation. Bilateral patchy infiltrates on x-ray. Urine antigens. Blood Culture : NTD Sputum Culture: Urine Culture: Rapid COVID-19 test negative COVID PCR: Positive On COVID Protocol REM (02/14-02/18 ) Dexamethsone 6 mg I.V Daily S/P 1 Bag Covalasent Plasma Eliquis 2.5 mg q12 h daily Acorbic acid Zinc Nebs Supplemental oxygen Vancomycin ( 02/13-02/17 ) Zosyn ( 02/13- ) Levofloxacin ( 02/13 -02-15 ) Status: Acute (2) Diarrhea: Stool C.diff, Enteric bacterial panel , stool ova and parasite. Status: Acute (3) Pneumonia due to COVID-19 virus: Status: Acute (4) Sepsis: Status: Acute (5) COPD exacerbation: Status: Acute Additional A&P Information Code Status:Full code DVT PPX: Eliquis 2.5 ng q12 h daily Disposition : Home Attestations Medical Necessity Statement*: Patient needs to be in hospital for the management of R/F 2/2 COVID PNA Coding Level of Care Code Acute Communications Scientist for [facility] Fwd Diagnoses Respiratory failure J96.90 Diarrhea R19.7 Pneumonia due to COVID-19 virus U07.1; J12.89 Sepsis A41.9 COPD exacerbation J44.1
[2020-02-20] MEDS: ALPRAZolam 0.5 mg Tablet PO (21:45)
[2020-02-21] VITALS (9 sets, daily range): BP systolic 102–113; BP diastolic 56–81; PULSE 63–75; RESP 17–20; TEMP 36.4–37; O2SAT 86–94
[2020-02-21] MEDS: metoprolol tartrate 50 mg Tablet PO (06:36)
[2020-02-21] MEDS: dexamethasone 4 mg/mL INJ 6 MG IVP (06:36)
[2020-02-21] MEDS: budesonide 0.5 mg/2 mL Neb INHALATION (07:51)
[2020-02-21] MEDS: aspirin 81 mg EC Tablet PO (09:17)
[2020-02-21] MEDS: ascorbic acid 500 mg Tablet PO (09:17)
[2020-02-21] MEDS: zinc gluconate 50 mg Tablet PO (09:17)
[2020-02-21] MEDS: pantoprazole DR 40 mg Tablet PO (09:17)
[2020-02-21] MEDS: guaiFENesin 600 mg Tablet PO (09:17)
[2020-02-21] MEDS: apixaban 5 mg Tablet 2.5 MG PO (09:17)
--- NOTE | 2020-02-21 12:22 | P.DS_ITS ---
Discharge Providers Date of Admission: 02/14/20 01:58 Date of Discharge: February 21, 2020 Attending Provider at Admission: Cruz Diego Attending Provider at Discharge: Clif Black MD Primary Care Provider: CRAIG Banuelos Diagnoses at Discharge Discharge Diagnosis (1) Respiratory failure: Status: Acute (2) Diarrhea: Status: Acute (3) Pneumonia due to COVID-19 virus: Status: Acute (4) Sepsis: Status: Acute (5) COPD exacerbation: Status: Acute Reason for Visit Reason for Visit: resp dis poss covid Hospital Course Hospital Course 64-year-old gentleman with history of COPD, not on oxygen, at home has uses a nebulizer, came to ER due to progressively worsening shortness of breath. He states that around January 26 he was having some GI symptoms with nausea vomiting, diarrhea, chills, and also started having some dry cough, he says that since then vomiting and diarrhea resolved, although did have some nausea today, however, shortness of breath, cough have persisted and gotten worse. In ER his rapid Covid antigen negative was negative. He was under the hospital for acute respiratory failure and put on high flow. He was started on empiric broad- spectrum antibiotics. Later his COVID-19 PCR came back positive and was started on antiviral treatment and steroid as per the protocol. He responded well to the treatment and was eventually transferred out to the general floor once his oxygen supplementation stabilized. His oxygen requirements have been stable at around 4 L on rest and at least 6 L on ambulation which has been confirmed with home O2 evaluation. He is been discharged on IV stable condition on Advair and Spiriva for inhalation treatment for next 2 weeks, Eliquis as anticoagulation for next 2 weeks with advised to follow-up with his primary care provider within next 1 to 3 days. He is advised in detail regarding social distancing. Physical Exam Const: COMMON NORMALS: no acute distress and patient oriented x3 HENMT: COMMON NORMALS: normocephalic, atraumatic, hearing grossly normal bilaterally and oropharynx normal HEAD & SCALP: normocephalic and atraumatic Eye: COMMON NORMALS: no scleral icterus GENERAL EYE: appearance normal, both eyes and all related structures Neck/C-Spine: COMMON NORMALS: no JVD Chest: COMMONS NORMALS: normal inspection of the chest and normal palpation of entire chest wall CHEST: Yes Symmetrical chest wall rise Resp: COMMON NORMALS: normal respiratory effort, No retractions, No use of accessory muscles and clear to auscultation bilaterally EFFORT & INSPECTION: Yes symmetric chest movement AUSCULTATION: clear to auscultation bilaterally Cardio: COMMON NORMALS: no JVD, regular rate, regular rhythm, S1 normal heart sound present, S2 normal heart sound present, No gallops present (Cardio), No murmurs present (Cardio), No rub (Cardio) and Peripheral pulses 2+ throughout RATE: regular rate RHYTHM: regular rhythm HEART SOUNDS: S1 normal heart sound present and S2 normal heart sound present PERIPHERAL PULSES: Peripheral pulses 2+ throughout GI: COMMON NORMALS: Normal to inspection, nondistended, normoactive bowel soun ds present, Soft to palpation, non-tender, No hepatosplenomegaly present and no masses AUSCULTATION: Yes normoactive bowel sounds PALPATION: Yes Soft to palpation and Yes No hepatosplenomegaly present RECTAL EXAM: Yes deferred Extremity: COMMON NORMALS: no joint enlargement, no clubbing, cyanosis or edema and no pedal edema Neuro: COMMON NORMALS: patient oriented x3 and moves all extremities Skin: COMMON NORMALS: no rashes or lesions noted GENERAL SKIN EXAM: no rashes or lesions noted Discharge Data Data Completed and Pending: Completed Studies During Hospitalization Category Date Time Status CT angio chest PE protcl [id number] Urge nt Cat Scan 02/13/20 21:39 Completed XR chest 1V regina ble [id number] Routine Exams 02/18/20 06:00 Completed XR chest 1V regina ble [id number] Stat Exams 02/13/20 19:24 Completed XR chest 1V regina ble [id number] Stat Exams 02/14/20 05:58 Completed Pending at discharge Category Date Time Status ABG ONLY [Arteria l Blood Gas W/O Co ox] Routine Lab 02/13/20 21:20 Ordered Clostridioides Di fficile PCR Routin e Lab 02/20/20 15:05 Uncollected Enteric Bacterial Panel by PCR Rout ine Lab 02/20/20 15:05 Uncollected Sputum Culture an d Gram Stain Yari ne Lab 02/14/20 03:04 Uncollected stool Ova and Par asite [Enteric Par asite Panel by PCR ] Lab 02/20/20 15:05 Uncollected Routine Vitals: Last Vital Signs Temp 98.2 F 02/21/20 12:00 Pulse 75 02/21/20 12:00 Resp 17 02/21/20 12:00 BP 104/56 02/21/20 12:00 Pulse Ox 94 02/21/20 12:00 Discharge Plan Discharge Patient Disposition: Home Condition: Stable Prescriptions: New zinc gluconate 50 mg Tablet 50 mg PO DAILY 14 Days Qty: 14 RF: 0 Eliquis 5 mg Tablet 2.5 mg PO BID 14 Days Qty: 14 RF: 0 Mucinex 600 mg Tablet Extended Release 12hr 600 mg PO BID PRN (Reason: cough) 14 Days Qty: 10 RF: 0 Advair Diskus 250-50 mcg/dose blister with device 1 inh inhalation BID 14 Days Qty: 30 RF: 0 Spiriva with HandiHaler 18 mcg capsule, w/inhalation device 1 cap inhalation DAILY Qty: 20 RF: 0 dexamethasone 6 mg tablet 6 mg PO DAILY Qty: 10 RF: 0 Continued multivitamin [Multiple Vitamins] Tablet 1 tab PO DAILY RF: 0 aspirin [Aspir-81] 81 mg Tablet,Delayed Release (Dr/Ec) 81 mg PO DAILY RF: 0 Vitamin D3 1 tab PO DAILY RF: 0 Abuta See Rx Instructions .ROUTE .COMPLEX RF: 0 Embauba See Rx Instructions .ROUTE .COMPLEX RF: 0 Graviola See Rx Instructions .ROUTE .COMPLEX RF: 0 Mesoglycan 1 tab PO DAILY RF: 0 nitroglycerin 0.4 mg tablet, sublingual 0.4 mg SUBLINGUAL Q5M PRN (Reason: chest pain) Qty: 20 RF: 0 Zofran 4 mg Tablet 4 mg PO Q4H PRN (Reason: Nausea) RF: 0 metoprolol tartrate 50 mg Tablet 50 mg PO Q12H RF: 0 budesonide 0.5 mg/2 mL suspension for nebulization 0.5 mg inhalation BID RF: 0 albuterol sulfate [Ventolin HFA] 90 mcg/actuation HFA aerosol inhaler 1 inh inhalation Q6H PRN (Reason: shortness of breath or wheezing) Qty: 6.7 RF: 0 pantoprazole [Protonix] 40 mg tablet,delayed release (DR/EC) 40 mg PO BID 10 Days Qty: 20 RF: 0 Changed Vitamin C 1,000 mg Tablet 1,000 mg PO DAILY Qty: 30 RF: 0 Discontinued lisinopril 10 mg tablet 10 mg PO DAILY RF: 0 azithromycin 500 mg tablet 500 mg PO DAILY 7 Days Qty: 7 RF: 0 Discharge Orders: Discharge Order (Routine); Ordered 02/21/20 Ordered By: Clif Black Other Ambulatory Orders: DME: Oxygen (Order) Location: None Selected Ordered By: Clif Black Referrals: [facility] [Outside] ([facility] will see you at home on Tuesday. ) Mat Junior MD [Physician] - 02/27/20 10:30 am (This is a telehealth visit. Dr. Junior's nurse will call you at the time of your appointment. ) Hill Cleveland, FIELD TAX AUDITOR-C [Primary Care Provider] - 02/25/20 4:20 pm () Discharge Diet: Regular Discharge Activity: Resume usual activity Patient Instructions: Diarrhea - Adult, Guaifenesin (By mouth), Zinc Sulfate (By mouth), Dexamethasone (By mouth), Fluticasone/Salmeterol (By breathing), Tiotropium (By breathing), Apixaban (By mouth), Viral Pneumonia (DC), COPD Stoplight, Pneumonia Stoplight Discharge Attestations Time Spent in Discharge Care*: greater than 30 min Specific Discharge Activities: educating patient, discussing with pcp/other providers, discussing with therapeutic case manager/social workers/dc planners, documenting/other paperwork and evaluating patient/reviewing data Status at Discharge: Cognitive status at discharge: cognitively intact , Behavioral status at discharge: cooperative , Functional status at discharge: independent ambulation Overall status at discharge: patient is back to [facility] Quality Metrics Clinical Quality Measures During this hospital stay, did patient experience: None Coding Level of Care Code Acute Licensing And Registration Director for [facility] Fwd Exam Comprehensive Diagnoses Respiratory failure J96.90 Diarrhea R19.7 Pneumonia due to COVID-19 virus U07.1; J12.89 Sepsis A41.9 COPD exacerbation J44.1
--- NOTE | 2020-02-21 16:32 | PC.SOCIAL ---
*IMM* Patient updated on IMM. Patient discharging today.
== END 2020-02-21 17:30 | disposition home or self-care (01) | DRG 871 ==
LOC: ER 22:50 → ICU 23:47 → ER IP 02-14 08:27 → ICU 02-14 17:09 → MEDSURG 02-19 00:10
PROVIDERS: Family Medicine; Internal Medicine; Admitting Provider Internal Medicine; Emergency Provider Emergency Medicine; PCP Nurse Practitioner; Visit Provider Student in an Organized Health Care Education/Training Program
DX: A41.9 Sepsis, unspecified organism (principal); U07.1 COVID-19; J12.82 Pneumonia due to coronavirus disease 2019; J96.01 Acute respiratory failure with hypoxia; J44.1 Chronic obstructive pulmonary disease with (acute) exacerbation; I25.10 Atherosclerotic heart disease of native coronary artery without angina pectoris; Z87.891 Personal history of nicotine dependence; K52.9 Noninfective gastroenteritis and colitis, unspecified; Z79.82 Long term (current) use of aspirin; Z79.51 Long term (current) use of inhaled steroids
CPT/HCPCS: 12345; 36415; 36430; 36600; 71045; 71275; 80048; 80051; 80053; 80202; 82330; 82805; 83605; 83880; 85025; 85378; 85610; 86850; 86870; 86900; 86927; 87040; 87426; 87635; 87641; 93005; 94640; 94660; 96372; 99284; J1100; J1650; J1940; J2060; J2543; J2930; J3370; J3535; J7030; J7050; J7626; P9017; Q9967